=== PATIENT | male | born 1960 | race Caucasian/White ===

== ENCOUNTER → 2016-03-18 | Outpatient (CLI) | payer OTHER ==
--- NOTE | 2016-03-18 09:14 | MR ---
EXAMINATION TYPE: MR shoulder LT wo con DATE OF EXAM: 03/18/2016 6:55 AM COMPARISON: Radiograph 03/05/2016 HISTORY: 55-year-old male with pain and shoulder joint. TECHNIQUE: Multiplanar, multisequence imaging of the left shoulder is performed without contrast. FINDINGS: Unable to adequately visualize the long head biceps tendon. A thin strand may be present along the bi cipital groove, axial image 10. There is a tear of the superior most subscapularis tendon fibers with very mild fatty infiltration of the subscapularis muscle belly. Some of the middle and inferior third subscapularis tendon fibers ar e visualized but are heterogeneous suggesting tendinosis. Suspected partial thickness articular sided tearing of the middle and inferior thirds fibers, for example, axial image 11. There is moderate degenerative joint space narrowing with marginal spurring and capsular hypertrophy at the acromioclavicular joint. Mild encroachment onto the subacromial space. There is heterogeneous signal throughout the supraspinatus and infraspinatus tendons with suggestion of an anterior rim rent tear of the supraspinatus tendon measuring 6 mm long and 9 mm AP dimension. T his tear, however, delaminates medially and posteriorly within the substance of the entire supraspina tus tendon measure up to 1.9 cm long and 2.5 cm AP dimension. No discrete bursal sided communication or full-thickness, retracted tear is seen. There is intermediate, tendinotic signal within the infraspinatus tendon without discrete tear. Mild fluid within the subacromial/subdeltoid bursa. Minimal fatty streaks within both supraspinatus a nd infraspinatus muscle bellies. Evaluation of the glenohumeral joint shows overall preserved articular cartilage but with a degenerat kylie and blunted superior labrum. No paralabral cyst is seen. Physiologic joint effusion. No Hill-Sachs deformity or os acromiale. Some patchy red marrow is present and can be seen in the setting of anemia, smoking, obesity, or wetlands technician kavya disease. IMPRESSION: 1. Diffuse rotator cuff tendinosis. There appears to be a rim rent tear of the anterior supraspinatus tendon but with a larger intrasubstance tear delaminating posteriorly and medially measuring up to 1 .9 cm long and 2.5 cm AP involving nearly the entire supraspinatus tendon. No discrete bursal sided c ommunication or retracted full-thickness tear is seen. 2. Tear of the superior subscapularis tendon fibers and additional articular sided tearing of the rem aining middle and inferior thirds fibers. 3. Inadequate visualization of the long head biceps tendon which may be chronically torn. 4. Moderate AC joint osteoarthrosis. There is some inferior spurring which encroaches onto the subacr omial space. Underlying bursal effusion could be reactive or could represent a mild bursitis. 5. Degenerative and blunted superior labrum.
== END | disposition home or self-care (01) ==
LOC: RADMRIMAIN 06:13
PROVIDERS: ATTEND Family Medicine
DX: S46.812A Strain of other muscles, fascia and tendons at shoulder and upper arm level, left arm, initial encounter (principal); M75.122 Complete rotator cuff tear or rupture of left shoulder, not specified as traumatic; M19.012 Primary osteoarthritis, left shoulder

== ENCOUNTER 2016-04-01 07:32 | Emergency (ER) | payer OTHER ==
[2016-04-01] MEDS ORDERED: KETOROLAC 30 MG/ML 1 ML VIAL IVP STA (08:33)
[2016-04-01] MEDS ORDERED: ORPHENADRINE 30 MG/ML 2 ML VIAL IVP STA (08:34)
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
[2016-04-01 08:55] LABS: Basophils % (A) 1 %; CHCM 36.7; Eosinophils # (A) 0.3 k/uL (0-0.7); Eosinophils % (A) 6 %; HCT 40.8 % (39.0-53.0); HDW 3.33; HGB 14.3 gm/dL (13.0-17.5); Luc # (Auto) 0.14; Luc % (Auto) 3; Lymphocytes # (A) 1.8 k/uL (1.0-4.8); Lymphocytes % (A) 37 %; MCH 30.9 pg (25.0-35.0); MCHC 35.1 g/dL (31.0-37.0); MCV 87.9 fL (80.0-100.0); Mean Platelet Volume 8.9; Monocytes # (A) 0.4 k/uL (0-1.0); Monocytes % (A) 8 %; Neutrophils # (A) 2.1 k/uL (1.3-7.7); Neutrophils % (A) 45 %; RBC 4.64 m/uL (4.30-5.90); RDW 13.8 % (11.5-15.5); WBC 4.8 k/uL (3.8-10.6); WBC (Perox) 4.61
[2016-04-01 09:04] LABS: ALT 68 U/L (21-72); AST 32 U/L (17-59); Alkaline Phosphatase 60 U/L (38-126); Anion Gap 10 mmol/L; Blood Urea Nitrogen 11 mg/dL (9-20); Calcium 9.9 mg/dL (8.4-10.2); Carbon Dioxide 29 mmol/L (22-30); Chloride 104 mmol/L (98-107); Glucose 104 mg/dL (74-99); Magnesium 1.9 mg/dL (1.6-2.3); Non-African American GFR(MDRD) >60 (>60 ml/min/1.73 sqM); Potassium 4.4 mmol/L (3.5-5.1); Sodium 143 mmol/L (137-145); Total Bilirubin 0.6 mg/dL (0.2-1.3); Total Protein 7.4 g/dL (6.3-8.2)
[2016-04-01 09:24] LABS: Creatine Kinase 127 U/L (55-170)
--- NOTE | 2016-04-01 09:27 | XR ---
EXAMINATION TYPE: XR chest 2V DATE OF EXAM: 04/01/2016 9:20 AM COMPARISON: NONE HISTORY: Pain TECHNIQUE: Frontal and lateral views of the chest are obtained. FINDINGS: There is no focal air space opacity, pleural effusion, or pneumothorax seen. The cardiac silhouette size is within normal limits. The osseous structures are intact. IMPRESSION: No acute cardiopulmonary process.
--- NOTE | 2016-04-01 09:29 | XR ---
EXAMINATION TYPE: XR cervical spine comp DATE OF EXAM: 04/01/2016 9:20 AM CLINICAL HISTORY: pain COMPARISON: NONE TECHNIQUE: Frontal, lateral, oblique, swimmers, and open mouth view of the cervical spine are obtaine d. FINDINGS: The cervical spine is visualized in its entirety from C1 thru the top of T1 level. It is s atisfactory in alignment for dislocation. Well-corticated ossific density noted just caudal to C1 an teriorly is likely chronic in nature however consider CT to exclude acute process. The pre-vertebral soft tissue appears within normal limits. Disc spaces are well preserved. IMPRESSION: Well-corticated ossific density noted just caudal to C1 anteriorly is likely chronic in nature however consider CT to exclude acute process.
[2016-04-01 09:37] LABS: Creatine Kinase MB 1.1 ng/mL (0.0-2.4); Troponin I <0.012 ng/mL (0.000-0.034)
[2016-04-01 10:36] VITALS: BP 131/83; PULSE 63; RESP 14; TEMP 96.8
== END 2016-04-01 10:39 | disposition home or self-care (01) ==
LOC: EC 07:32
DX: M54.10 Radiculopathy, site unspecified (principal); M79.1 Myalgia; G89.29 Other chronic pain; M54.2 Cervicalgia; I20.9 Angina pectoris, unspecified; J44.9 Chronic obstructive pulmonary disease, unspecified; I10 Essential (primary) hypertension; E78.5 Hyperlipidemia, unspecified; F41.9 Anxiety disorder, unspecified; M19.90 Unspecified osteoarthritis, unspecified site; F41.0 Panic disorder [episodic paroxysmal anxiety]; Z79.899 Other long term (current) drug therapy; Z79.82 Long term (current) use of aspirin; Z79.51 Long term (current) use of inhaled steroids; Z87.891 Personal history of nicotine dependence; Z79.891 Long term (current) use of opiate analgesic
CPT/HCPCS: 36415; 93005; 80053; 82550; 82553; 83735; 84484; 85025; 71020; 72050; 96374; 96375; 99284; J2360; J1885

== ENCOUNTER 2016-04-11 03:35 | Emergency (ER) | payer OTHER ==
[2016-04-11 03:47] VITALS: BP 176/101; PULSE 91; RESP 18; TEMP 97
[2016-04-11] MEDS ORDERED: MAG HYDROX/AL HYDROX/SIMETH 30 ML, HYOSCYAMINE ELIXIR 10 ML, CIMETIDINE HCL 300 MG, LID... PO STA ×4 (04:02)
[2016-04-11] MEDS ORDERED: MORPHINE SULFATE 10 MG/ML SYRINGE IM STA (04:02)
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
== END 2016-04-11 04:21 | disposition home or self-care (01) ==
LOC: EC 03:35
DX: R07.89 Other chest pain (principal); I10 Essential (primary) hypertension; E78.5 Hyperlipidemia, unspecified; K21.9 Gastro-esophageal reflux disease without esophagitis; J44.9 Chronic obstructive pulmonary disease, unspecified; G47.30 Sleep apnea, unspecified; F41.0 Panic disorder [episodic paroxysmal anxiety]; M19.90 Unspecified osteoarthritis, unspecified site; Z99.89 Dependence on other enabling machines and devices; Z79.82 Long term (current) use of aspirin; Z79.899 Other long term (current) drug therapy; Z87.891 Personal history of nicotine dependence; Z79.891 Long term (current) use of opiate analgesic
CPT/HCPCS: 93005; 96372; 99285

== ENCOUNTER 2016-05-21 16:16 | Emergency (ER) | payer OTHER ==
[2016-05-21] MEDS ORDERED: NITROGLYCERIN SL TABS 0.4 MG TAB SUBLINGUAL STA ×2 (16:44)
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
[2016-05-21] MEDS: ASPIRIN 81 MG CHEW PO STA (16:59)
[2016-05-21] MEDS: NITROGLYCERIN SL TABS 0.4 MG TAB SUBLINGUAL STA (17:00)
[2016-05-21 17:03] VITALS: RESP 18
[2016-05-21 17:09] LABS: ALT 73 U/L (21-72); AST 46 U/L (17-59); Alkaline Phosphatase 60 U/L (38-126); Anion Gap 13 mmol/L; Blood Urea Nitrogen 19 mg/dL (9-20); Calcium 10.5 mg/dL (8.4-10.2); Carbon Dioxide 28 mmol/L (22-30); Chloride 101 mmol/L (98-107); Glucose 103 mg/dL (74-99); Non-African American GFR(MDRD) >60 (>60 ml/min/1.73 sqM); Potassium 4.6 mmol/L (3.5-5.1); Sodium 142 mmol/L (137-145); Total Bilirubin 0.6 mg/dL (0.2-1.3); Total Protein 8.2 g/dL (6.3-8.2)
[2016-05-21 17:10] LABS: Basophils # (A) 0.1 k/uL (0-0.2); Basophils % (A) 1 %; CHCM 36.6; Eosinophils # (A) 0.3 k/uL (0-0.7); Eosinophils % (A) 4 %; HCT 41.1 % (39.0-53.0); HDW 3.38; HGB 14.9 gm/dL (13.0-17.5); Luc # (Auto) 0.22; Luc % (Auto) 3; Lymphocytes % (A) 30 %; MCH 31.9 pg (25.0-35.0); MCHC 36.2 g/dL (31.0-37.0); MCV 88.2 fL (80.0-100.0); Mean Platelet Volume 7.6; Monocytes # (A) 0.4 k/uL (0-1.0); Monocytes % (A) 6 %; Neutrophils # (A) 3.7 k/uL (1.3-7.7); Neutrophils % (A) 55 %; RBC 4.67 m/uL (4.30-5.90); RDW 13.8 % (11.5-15.5); WBC 6.7 k/uL (3.8-10.6); WBC (Perox) 6.33
[2016-05-21 17:23] LABS: Prothrombin Time 10.4 sec (9.0-12.0)
[2016-05-21] MEDS: MAG HYDROX/AL HYDROX/SIMETH 30 ML, HYOSCYAMINE ELIXIR 10 ML, CIMETIDINE HCL 300 MG, LID... PO STA ×4 (17:24)
[2016-05-21 17:30] LABS: Creatine Kinase MB 1.7 ng/mL (0.0-2.4); Troponin I 0.014 ng/mL (0.000-0.034)
--- NOTE | 2016-05-21 17:52 | XR ---
EXAMINATION TYPE: XR chest 2V DATE OF EXAM: 05/21/2016 5:40 PM COMPARISON: 04/01/2016 HISTORY: Chest pain TECHNIQUE: Frontal and lateral views of the chest are obtained. FINDINGS: Heart and mediastinum are normal. Lungs are clear. Diaphragm is normal. Bony thorax appear s intact. There are chest leads. IMPRESSION: Normal chest. No change.
[2016-05-21 18:24] VITALS: BP 132/77; PULSE 81
[2016-05-21 18:34] VITALS: TEMP 98.4
== END 2016-05-21 18:34 | disposition home or self-care (01) ==
LOC: EC 16:16
DX: K22.4 Dyskinesia of esophagus (principal); R07.89 Other chest pain; J44.9 Chronic obstructive pulmonary disease, unspecified; E78.5 Hyperlipidemia, unspecified; I10 Essential (primary) hypertension; M19.90 Unspecified osteoarthritis, unspecified site; G47.30 Sleep apnea, unspecified; F31.9 Bipolar disorder, unspecified; F41.9 Anxiety disorder, unspecified; F41.0 Panic disorder [episodic paroxysmal anxiety]; Z87.891 Personal history of nicotine dependence; Z79.51 Long term (current) use of inhaled steroids; Z79.82 Long term (current) use of aspirin; Z79.899 Other long term (current) drug therapy
CPT/HCPCS: 36415; 71020; 80053; 82550; 82553; 83735; 84484; 85025; 85379; 85610; 85730; 93005; 99285

== ENCOUNTER → 2016-09-15 | Outpatient (CLI) | payer OTHER ==
--- NOTE | 2016-09-15 08:53 | FL ---
EXAMINATION TYPE: FL UGI air DATE OF EXAM: 09/15/2016 COMPARISON: NONE HISTORY: 55-year-old male with epigastric pain and reflux for 6 months. Patient reports some weight g ain and choking episodes. Total fluoroscopy time: 1.9 minutes. TECHNIQUE: A double contrast UGI study is performed. FINDINGS: The esophagus has a normal course, caliber, motility and mucosa. No hiatal hernia is identified. Gastroesophageal reflux could not be elicited with Valsalva or positional maneuvers. The stomach shows mild fold thickening along the gastric fundus. Otherwise, the stomach and duodenum are free of any persistent filling defect. IMPRESSION: 1. Some fold thickening along the gastric fundus can be seen with chronic gastritis. Clinically corre late. 2. No sizable hiatal hernia. While reflux could not be identified during the course of this exam, thi s does not exclude its possibility. 3. Consider the utility of a modified barium swallow under the supervision of speech pathology given the patient's reported choking episodes.
== END | disposition home or self-care (01) ==
LOC: RADFLWHC 07:51
PROVIDERS: ATTEND Family Medicine
DX: K31.89 Other diseases of stomach and duodenum (principal); R10.13 Epigastric pain
CPT/HCPCS: 74246

== ENCOUNTER → 2017-04-07 | Day surgery (SDC) | payer OTHER ==
[2017-03-30 15:14] VITALS: BMI 45.6
[~2017-04-07] MED LIST: DEXAMETHASONE SOD PHOSPHATE 10 MG/ML 1 ML VIAL IV ONE; HEPARIN SODIUM,PORCINE 5,000 UNIT/ML 1 ML VIAL SQ ONE; HYDROmorphone 0.5 MG/0.5 ML SYRINGE IVP PRN; LACTATED RINGERS 1,000 ML IV SCH; LIDOCAINE 1% 20 ML VIAL (10MG/ML) FOR IV START INTRADERMA PRN; LIDOCAINE 1% INJ 10MG/ML (20 ML MDV) SQ ONE; ONDANSETRON 4 MG/2 ML VIAL IVP ONE; Pre Op ABX Message 1 EACH MISC MISCELLANE ONE; SCOPOLAMINE 1.5MG/72HR PATCH TRANSDERM ONE
[2017-04-07 09:23] VITALS: TEMP 98.7
--- NOTE | 2017-04-07 10:41 | P.OP ---
Date of Procedure: 04/07/17 Preoperative Diagnosis: Soft tissue mass further and left chest Postoperative Diagnosis: Same Procedure(s) Performed: Excision soft tissue mass right arm and left chest Anesthesia: local Surgeon: Marcela Root Estimated Blood Loss (ml): 3 IV fluids (ml): 150 Pathology: other (Soft tissue masses 2) Condition: stable Disposition: PACU Indications for Procedure: Soft tissue masses increasing in size and painful Operative Findings: Soft tissue masses 2 right arm and left chest Description of Procedure: Patient was taken to the operating room and following the right arm and left chest pain prepped in a sterile fashion. Percent lidocaine was used to anesthetize the area of concern in the right arm. An incision was made and carried through the skin and subcutaneous tissue to the lesion of concern in the right arm. This was excised. It was consistent with a lipoma. It was approximately 2 x 1.5 cm in size. Following this the deep tissues were closed using a Vicryl suture followed by closure of the skin with a 4-0 Monocryl. The area of the chest was then approached. 1% lidocaine was used to anesthetize the area of concern. Incision was made and carried through skin and subcutaneous tissues and through area of the subcutaneous tissue was lipomatous lesion was identified and removed. This is approximately 1.8 x 1.2 cm in size. After assured that hemostasis was attained the deep tissues were closed using a Vicryl suture. The skin was closed using 4-0 Monocryl. Patient tolerated procedure in stable condition. All instrument and sponge counts were correct at the end of the case.
--- NOTE | 2017-04-07 10:43 | P.DS ---
Providers Attending physician: Marcela Root Primary care physician: Papo Castellanos Plan - Discharge Summary New Discharge Prescriptions: No Action Nitroglycerin Sl Tabs [Nitrostat] 0.4 mg SUBLINGUAL Q5M PRN PRN Reason: Chest Pain Hydrocodone/Acetaminophen [[place] 10-325] 1 tab PO Q6H PRN PRN Reason: Pain Metoprolol Tartrate [Lopressor] 50 mg PO TID Albuterol Inhaler [Ventolin Hfa Inhaler] 2 puff INHALATION Q4H PRN PRN Reason: Shortness Of Breath ALPRAZolam [Xanax] 1 mg PO TID PRN PRN Reason: Anxiety Losartan [Cozaar] 50 mg PO HS Gemfibrozil 600 mg PO BID Ipratropium Nebulized [Atrovent Nebulized] 0.5 mg INHALATION QID PRN PRN Reason: sob Naproxen 500 mg PO Q12H PRN PRN Reason: Pain Baclofen [Lioresal] 20 mg PO HS Budesonide/Formoterol Fumarate [Symbicort 160-4.5 Mcg Inhaler] 2 puff INHALATION BID Albuterol Nebulized [Ventolin Nebulized] 2.5 mg INHALATION QID PRN PRN Reason: sob Aspirin EC [Ecotrin Low Dose] 81 mg PO DAILY Multivit-Min/FA/Lycopen/Lutein [Centrum Silver Tablet] 1 tab PO DAILY Pantoprazole [Protonix] 40 mg PO DAILY #14 tablet. Omega3/Dha/Epa/Fish Oil/Vit D3 [Fish Oil-Vit D3 Softgel] 1 each PO DAILY Magnesium Oxide [Mag-Ox] 250 mg PO DAILY Ubidecarenone [Co Q-10] 100 mg PO DAILY Discharge Medication List Hydrocodone/Acetaminophen [[place] 10-325] 1 tab PO Q6H PRN 03/02/14 [History] Metoprolol Tartrate [Lopressor] 50 mg PO TID 03/02/14 [History] Nitroglycerin Sl Tabs [Nitrostat] 0.4 mg SUBLINGUAL Q5M PRN 03/02/14 [History] ALPRAZolam [Xanax] 1 mg PO TID PRN 05/25/14 [History] Albuterol Inhaler [Ventolin Hfa Inhaler] 2 puff INHALATION Q4H PRN 05/25/14 [ History] Losartan [Cozaar] 50 mg PO HS 02/01/15 [History] Gemfibrozil 600 mg PO BID 02/04/15 [History] Ipratropium Nebulized [Atrovent Nebulized] 0.5 mg INHALATION QID PRN 02/06/15 [ History] Baclofen [Lioresal] 20 mg PO HS 11/07/15 [History] Naproxen 500 mg PO Q12H PRN 11/07/15 [History] Budesonide/Formoterol Fumarate [Symbicort 160-4.5 Mcg Inhaler] 2 puff INHALATION BID 01/31/16 [History] Albuterol Nebulized [Ventolin Nebulized] 2.5 mg INHALATION QID PRN 02/29/16 [ History] Aspirin EC [Ecotrin Low Dose] 81 mg PO DAILY 03/03/16 [History] Multivit-Min/FA/Lycopen/Lutein [Centrum Silver Tablet] 1 tab PO DAILY 04/01/16 [ History] Pantoprazole [Protonix] 40 mg PO DAILY #14 tablet. 05/21/16 [Rx] Magnesium Oxide [Mag-Ox] 250 mg PO DAILY 03/30/17 [History] Omega3/Dha/Epa/Fish Oil/Vit D3 [Fish Oil-Vit D3 Softgel] 1 each PO DAILY [History] Ubidecarenone [Co Q-10] 100 mg PO DAILY 03/30/17 [History] Follow up Appointment(s)/Referral(s): Marcela Root MD [STAFF PHYSICIAN] - 1 Week Activity/Diet/Wound Care/Special Instructions: Patient may shower after 48 hours Discharge Disposition: HOME SELF-CARE
[2017-04-07 10:47] VITALS: BP 115/68; PULSE 69; RESP 16
== END | disposition home or self-care (01) ==
LOC: OR 08:30
PROVIDERS: ATTEND Surgery
DX: D17.1 Benign lipomatous neoplasm of skin and subcutaneous tissue of trunk (principal); D17.21 Benign lipomatous neoplasm of skin and subcutaneous tissue of right arm; I10 Essential (primary) hypertension; K21.9 Gastro-esophageal reflux disease without esophagitis; F41.9 Anxiety disorder, unspecified; Z87.891 Personal history of nicotine dependence; Z79.82 Long term (current) use of aspirin; Z79.891 Long term (current) use of opiate analgesic; Z79.51 Long term (current) use of inhaled steroids; Z79.899 Other long term (current) drug therapy
CPT/HCPCS: 88305; 21555; 25075; J1644; J2001

== ENCOUNTER 2017-05-23 18:12 | Emergency (ER) | payer OTHER ==
[2017-05-23 18:22] VITALS: TEMP 99.8
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
[2017-05-23] MEDS ORDERED: SODIUM CHLORIDE 0.9% 1,000 ML IV SCH (19:30)
--- NOTE | 2017-05-23 20:13 | XR ---
EXAMINATION TYPE: XR chest 2V DATE OF EXAM: 05/23/2017 COMPARISON: Chest x-ray May 21, 2016. HISTORY: Palpitations and dysrhythmia. TECHNIQUE: Frontal and lateral views of the chest are obtained. FINDINGS: There is no focal air space opacity, pleural effusion, or pneumothorax seen. The cardiac silhouette size is within normal limits. The osseous structures are intact. IMPRESSION: No acute cardiopulmonary process. No significant change from prior.
[2017-05-23 20:28] VITALS: RESP 18
[2017-05-23 21:20] LABS: Creatine Kinase 237 U/L (55-170)
[2017-05-23 21:31] LABS: Creatine Kinase MB 1.3 ng/mL (0.0-2.4); Troponin I <0.012 ng/mL (0.000-0.034)
[2017-05-23 22:18] VITALS: BP 134/66; PULSE 84
== END 2017-05-23 22:17 | disposition home or self-care (01) ==
LOC: EC 18:12
DX: I20.8 Other forms of angina pectoris (principal); F41.9 Anxiety disorder, unspecified; J44.9 Chronic obstructive pulmonary disease, unspecified; I10 Essential (primary) hypertension; G47.30 Sleep apnea, unspecified; Z99.89 Dependence on other enabling machines and devices; E78.1 Pure hyperglyceridemia; Z95.5 Presence of coronary angioplasty implant and graft; Z87.891 Personal history of nicotine dependence; Z79.51 Long term (current) use of inhaled steroids; Z79.82 Long term (current) use of aspirin; Z79.899 Other long term (current) drug therapy
CPT/HCPCS: 36415; 71046; 82550; 82553; 84484; 93005; 99285

== ENCOUNTER 2017-07-11 22:06 | Emergency (ER) | payer OTHER ==
[2017-07-11 22:17] VITALS: TEMP 98.8
[2017-07-11] MEDS ORDERED: SODIUM CHLORIDE 0.9% 1,000 ML IV STA (22:46)
[2017-07-11] MEDS ORDERED: LORazepam 1 MG TAB PO STA (22:47)
[2017-07-11 22:55] VITALS: RESP 16
[2017-07-11 23:06] LABS: Basophils # (A) 0.1 k/uL (0-0.2); Basophils % (A) 1 %; Eosinophils # (A) 0.3 k/uL (0-0.7); Eosinophils % (A) 5 %; HCT 41.1 % (39.0-53.0); HGB 14.4 gm/dL (13.0-17.5); Lymphocytes # (A) 2.8 k/uL (1.0-4.8); Lymphocytes % (A) 39 %; MCH 30.3 pg (25.0-35.0); MCHC 35.1 g/dL (31.0-37.0); MCV 86.2 fL (80.0-100.0); Mean Platelet Volume 7.4; Monocytes # (A) 0.5 k/uL (0-1.0); Monocytes % (A) 8 %; Neutrophils # (A) 3.2 k/uL (1.3-7.7); Neutrophils % (A) 45 %; Platelet Count 252 k/uL (150-450); RBC 4.77 m/uL (4.30-5.90); RDW 13.6 % (11.5-15.5); WBC 7.1 k/uL (3.8-10.6)
[2017-07-11 23:13] LABS: INR 1.1 (<1.2)
[2017-07-11 23:14] LABS: Partial Thromboplastin Time 24.2 sec (22.0-30.0); Prothrombin Time 10.3 sec (9.0-12.0)
[2017-07-11 23:17] LABS: ALT 88 U/L (21-72); AST 57 U/L (17-59); Alkaline Phosphatase 56 U/L (38-126); Anion Gap 14 mmol/L; Blood Urea Nitrogen 16 mg/dL (9-20); Calcium 10.5 mg/dL (8.4-10.2); Carbon Dioxide 25 mmol/L (22-30); Chloride 105 mmol/L (98-107); Glucose 121 mg/dL (74-99); Potassium 4.4 mmol/L (3.5-5.1); Sodium 144 mmol/L (137-145); Total Bilirubin 0.6 mg/dL (0.2-1.3); Total Protein 7.7 g/dL (6.3-8.2)
--- NOTE | 2017-07-11 23:20 | XR ---
EXAMINATION TYPE: XR chest 2V DATE OF EXAM: 07/11/2017 COMPARISON: 05/23/2017 HISTORY: Dysrhythmia TECHNIQUE: Frontal and lateral views of the chest are obtained. FINDINGS: There is no heart failure nor confluent pneumonic infiltrate. Costophrenic angles are gamal r. Heart size is normal. There are chest leads. Bony thorax is intact. IMPRESSION: No active cardiopulmonary disease. No change.
[2017-07-11 23:25] LABS: Creatine Kinase 600 U/L (55-170)
[2017-07-11 23:38] LABS: Troponin I <0.012 ng/mL (0.000-0.034)
[2017-07-11 23:51] VITALS: BP 132/65; PULSE 75
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
== END 2017-07-12 01:17 | disposition left against medical advice (07) ==
LOC: EC 22:06
DX: R00.2 Palpitations (principal); I10 Essential (primary) hypertension; J44.9 Chronic obstructive pulmonary disease, unspecified; E78.1 Pure hyperglyceridemia; G47.30 Sleep apnea, unspecified; Z99.89 Dependence on other enabling machines and devices; Z95.818 Presence of other cardiac implants and grafts; Z87.891 Personal history of nicotine dependence; Z79.899 Other long term (current) drug therapy; Z79.51 Long term (current) use of inhaled steroids; Z79.82 Long term (current) use of aspirin; Z82.49 Family history of ischemic heart disease and other diseases of the circulatory system
CPT/HCPCS: 36415; 71046; 80053; 82550; 82553; 83735; 84443; 84484; 85025; 85610; 85730; 93005; 96360; 96361; 99285

== ENCOUNTER 2017-07-15 07:55 | Emergency (ER) | payer OTHER ==
[2017-07-15] MEDS ORDERED: ASPIRIN 81 MG PO STA (08:05)
[2017-07-15] MEDS ORDERED: SODIUM CHLORIDE 0.9% 500 ML IV STA (08:05)
[2017-07-15] MEDS ORDERED: LORazepam 2 MG/ML INJ IV STA (08:23)
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
[2017-07-15] MEDS ORDERED: LORazepam 1 MG TAB PO STA (08:33)
[2017-07-15 08:39] VITALS: RESP 18
[2017-07-15 08:54] LABS: Basophils % (A) 1 %; Eosinophils # (A) 0.2 k/uL (0-0.7); Eosinophils % (A) 4 %; HCT 42.6 % (39.0-53.0); Lymphocytes # (A) 1.8 k/uL (1.0-4.8); Lymphocytes % (A) 33 %; MCH 29.8 pg (25.0-35.0); MCHC 35.2 g/dL (31.0-37.0); MCV 84.7 fL (80.0-100.0); Mean Platelet Volume 8.4; Monocytes # (A) 0.4 k/uL (0-1.0); Monocytes % (A) 7 %; Neutrophils # (A) 2.8 k/uL (1.3-7.7); Neutrophils % (A) 52 %; Platelet Count 221 k/uL (150-450); RBC 5.02 m/uL (4.30-5.90); RDW 13.5 % (11.5-15.5); WBC 5.3 k/uL (3.8-10.6)
--- NOTE | 2017-07-15 08:55 | XR ---
EXAMINATION TYPE: XR chest 2V DATE OF EXAM: 07/15/2017 COMPARISON: 07/11/2017 HISTORY: 56-year-old male dysrhythmia TECHNIQUE: PA and lateral views FINDINGS: The cardiomediastinal silhouette, aorta, and pulmonary vasculature are within normal limits. Mild int erstitial prominence is unchanged. Lungs and pleural spaces are clear. IMPRESSION: Chronic changes without acute cardiopulmonary process.
[2017-07-15 09:03] LABS: ALT 77 U/L (21-72); AST 75 U/L (17-59); Albumin 5.2 g/dL (3.5-5.0); Alkaline Phosphatase 56 U/L (38-126); Anion Gap 17 mmol/L; Blood Urea Nitrogen 16 mg/dL (9-20); Carbon Dioxide 22 mmol/L (22-30); Chloride 105 mmol/L (98-107); Glucose 108 mg/dL (74-99); Sodium 144 mmol/L (137-145); Total Bilirubin 1.2 mg/dL (0.2-1.3); Total Protein 8.1 g/dL (6.3-8.2)
[2017-07-15 09:06] LABS: INR 1.1 (<1.2); Prothrombin Time 10.8 sec (9.0-12.0)
[2017-07-15 09:08] LABS: Partial Thromboplastin Time 19.4 sec (22.0-30.0)
[2017-07-15 09:10] LABS: Potassium 5.1 mmol/L (3.5-5.1)
[2017-07-15 09:15] LABS: Creatine Kinase 383 U/L (55-170)
[2017-07-15 09:28] LABS: Creatine Kinase MB 1.5 ng/mL (0.0-2.4); Troponin I <0.012 ng/mL (0.000-0.034)
[2017-07-15 09:41] VITALS: PULSE 87
[2017-07-15 10:29] VITALS: BP 124/71; TEMP 98.3
== END 2017-07-15 10:24 | disposition home or self-care (01) ==
LOC: EC 07:55
DX: R00.2 Palpitations (principal); F41.0 Panic disorder [episodic paroxysmal anxiety]; J44.9 Chronic obstructive pulmonary disease, unspecified; E78.5 Hyperlipidemia, unspecified; I10 Essential (primary) hypertension; M19.90 Unspecified osteoarthritis, unspecified site; E78.1 Pure hyperglyceridemia; G47.30 Sleep apnea, unspecified; Z99.89 Dependence on other enabling machines and devices; Z95.818 Presence of other cardiac implants and grafts; Z87.891 Personal history of nicotine dependence; Z79.899 Other long term (current) drug therapy; Z79.51 Long term (current) use of inhaled steroids; Z79.82 Long term (current) use of aspirin; Z79.1 Long term (current) use of non-steroidal anti-inflammatories (NSAID); Z53.29 Procedure and treatment not carried out because of patient's decision for other reasons
CPT/HCPCS: 36415; 71046; 80053; 82550; 82553; 83735; 84484; 85025; 85610; 85730; 99285

== ENCOUNTER → 2017-07-25 | Outpatient (CLI) | payer OTHER ==
[2017-07-25 08:46] LABS: Basophils % (A) 1 %; Eosinophils # (A) 0.3 k/uL (0-0.7); Eosinophils % (A) 5 %; HCT 40.6 % (39.0-53.0); HGB 13.9 gm/dL (13.0-17.5); Lymphocytes # (A) 2.2 k/uL (1.0-4.8); Lymphocytes % (A) 45 %; MCH 29.8 pg (25.0-35.0); MCHC 34.3 g/dL (31.0-37.0); MCV 86.9 fL (80.0-100.0); Mean Platelet Volume 8.4; Monocytes # (A) 0.4 k/uL (0-1.0); Monocytes % (A) 8 %; Neutrophils # (A) 1.9 k/uL (1.3-7.7); Neutrophils % (A) 38 %; Platelet Count 225 k/uL (150-450); RBC 4.67 m/uL (4.30-5.90); RDW 13.6 % (11.5-15.5); WBC 4.9 k/uL (3.8-10.6)
[2017-07-25 09:02] LABS: ALT 75 U/L (21-72); AST 39 U/L (17-59); Albumin 4.5 g/dL (3.5-5.0); Alkaline Phosphatase 51 U/L (38-126); Anion Gap 13 mmol/L; Blood Urea Nitrogen 17 mg/dL (9-20); Calcium 9.6 mg/dL (8.4-10.2); Carbon Dioxide 28 mmol/L (22-30); Chloride 104 mmol/L (98-107); Cholesterol 117 mg/dL (<200); Glucose 113 mg/dL (74-99); HDL Cholesterol 26 mg/dL (40-60); LDL Cholesterol,Calculated 64 mg/dL (0-99); Potassium 4.5 mmol/L (3.5-5.1); Sodium 145 mmol/L (137-145); Total Bilirubin 0.5 mg/dL (0.2-1.3); Total Protein 6.9 g/dL (6.3-8.2); Triglycerides 135 mg/dL (<150)
[2017-07-25 09:17] LABS: T4, Free (Free Thyroxine) 0.95 ng/dL (0.78-2.19)
[2017-07-25 18:19] LABS: Hemoglobin A1C 5.3 % (4.0-6.0)
== END | disposition home or self-care (01) ==
LOC: LABWHC1 08:20
PROVIDERS: ATTEND Family Medicine
DX: E04.9 Nontoxic goiter, unspecified (principal); I10 Essential (primary) hypertension; R73.9 Hyperglycemia, unspecified
CPT/HCPCS: 36415; 80053; 80061; 83036; 84439; 84443; 85025

== ENCOUNTER 2017-08-24 15:34 | Emergency (ER) | payer OTHER ==
[2017-08-24 15:46] VITALS: TEMP 98
[2017-08-24] MEDS ORDERED: SODIUM CHLORIDE 0.9% 500 ML IV STA (15:50)
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
[2017-08-24 16:17] LABS: Basophils % (A) 1 %; Eosinophils # (A) 0.3 k/uL (0-0.7); Eosinophils % (A) 7 %; HCT 42.9 % (39.0-53.0); HGB 15.2 gm/dL (13.0-17.5); Lymphocytes # (A) 1.8 k/uL (1.0-4.8); Lymphocytes % (A) 35 %; MCH 31.1 pg (25.0-35.0); MCHC 35.5 g/dL (31.0-37.0); MCV 87.8 fL (80.0-100.0); Mean Platelet Volume 6.9; Monocytes # (A) 0.4 k/uL (0-1.0); Monocytes % (A) 7 %; Neutrophils # (A) 2.5 k/uL (1.3-7.7); Neutrophils % (A) 48 %; Platelet Count 238 k/uL (150-450); RBC 4.89 m/uL (4.30-5.90); RDW 13.8 % (11.5-15.5); WBC 5.1 k/uL (3.8-10.6)
--- NOTE | 2017-08-24 16:21 | XR ---
EXAMINATION TYPE: XR chest 2V DATE OF EXAM: 08/24/2017 COMPARISON: Chest x-ray July 15, 2017 HISTORY: Heart palpitations with dysrhythmia. TECHNIQUE: Frontal and lateral views of the chest are obtained. FINDINGS: Somewhat low lung volumes are redemonstrated. There is no focal air space opacity, pleural effusion, or pneumothorax seen. The cardiac silhouette size is within normal limits. The osseous structures are intact. IMPRESSION: No acute cardiopulmonary process. No significant change from prior.
[2017-08-24 16:23] LABS: INR 1.1 (<1.2); Prothrombin Time 10.4 sec (9.0-12.0)
[2017-08-24 16:25] LABS: ALT 91 U/L (21-72); AST 53 U/L (17-59); Albumin 4.9 g/dL (3.5-5.0); Alkaline Phosphatase 58 U/L (38-126); Anion Gap 15 mmol/L; Blood Urea Nitrogen 13 mg/dL (9-20); Calcium 10.1 mg/dL (8.4-10.2); Carbon Dioxide 27 mmol/L (22-30); Chloride 103 mmol/L (98-107); Glucose 104 mg/dL (74-99); Magnesium 2.1 mg/dL (1.6-2.3); Potassium 4.5 mmol/L (3.5-5.1); Sodium 145 mmol/L (137-145); Total Bilirubin 0.6 mg/dL (0.2-1.3); Total Protein 7.6 g/dL (6.3-8.2)
[2017-08-24 16:30] LABS: Creatine Kinase 251 U/L (55-170)
[2017-08-24 16:42] LABS: Creatine Kinase MB 1.6 ng/mL (0.0-2.4); Troponin I <0.012 ng/mL (0.000-0.034)
[2017-08-24 17:37] VITALS: BP 127/69; PULSE 74; RESP 18
== END 2017-08-24 17:37 | disposition home or self-care (01) ==
LOC: EC 15:34
DX: R00.8 Other abnormalities of heart beat (principal); R00.2 Palpitations; I48.91 Unspecified atrial fibrillation; I20.9 Angina pectoris, unspecified; J44.9 Chronic obstructive pulmonary disease, unspecified; E78.5 Hyperlipidemia, unspecified; F41.9 Anxiety disorder, unspecified; I10 Essential (primary) hypertension; M19.90 Unspecified osteoarthritis, unspecified site; Z87.891 Personal history of nicotine dependence; Z98.890 Other specified postprocedural states; Z79.82 Long term (current) use of aspirin; Z79.891 Long term (current) use of opiate analgesic; Z79.899 Other long term (current) drug therapy
CPT/HCPCS: 36415; 71046; 80053; 82550; 82553; 83735; 84443; 84484; 85025; 85610; 85730; 93005; 99285

== ENCOUNTER 2017-08-26 09:09 | Emergency (ER) | payer OTHER ==
[2017-08-26 09:27] VITALS: RESP 18
[2017-08-26] MEDS ORDERED: ASPIRIN 81 MG PO STA (09:49)
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
[2017-08-26 10:14] LABS: Basophils % (A) 1 %; Eosinophils # (A) 0.3 k/uL (0-0.7); Eosinophils % (A) 6 %; HCT 40.4 % (39.0-53.0); HGB 14.5 gm/dL (13.0-17.5); Lymphocytes # (A) 1.6 k/uL (1.0-4.8); Lymphocytes % (A) 35 %; MCH 31.3 pg (25.0-35.0); MCHC 35.8 g/dL (31.0-37.0); MCV 87.4 fL (80.0-100.0); Mean Platelet Volume 6.7; Monocytes # (A) 0.3 k/uL (0-1.0); Monocytes % (A) 7 %; Neutrophils # (A) 2.3 k/uL (1.3-7.7); Neutrophils % (A) 49 %; Platelet Count 232 k/uL (150-450); RBC 4.62 m/uL (4.30-5.90); RDW 13.6 % (11.5-15.5); WBC 4.6 k/uL (3.8-10.6)
[2017-08-26 10:28] LABS: ALT 80 U/L (21-72); AST 47 U/L (17-59); Albumin 4.8 g/dL (3.5-5.0); Alkaline Phosphatase 48 U/L (38-126); Anion Gap 15 mmol/L; Blood Urea Nitrogen 17 mg/dL (9-20); Calcium 9.7 mg/dL (8.4-10.2); Carbon Dioxide 25 mmol/L (22-30); Chloride 103 mmol/L (98-107); Glucose 124 mg/dL (74-99); Magnesium 2.1 mg/dL (1.6-2.3); Potassium 4.5 mmol/L (3.5-5.1); Sodium 143 mmol/L (137-145); Total Bilirubin 0.6 mg/dL (0.2-1.3); Total Protein 7.1 g/dL (6.3-8.2)
--- NOTE | 2017-08-26 10:40 | XR ---
EXAMINATION TYPE: XR chest 2V DATE OF EXAM: 08/26/2017 COMPARISON: 08/24/2017 HISTORY: Dysrhythmia. TECHNIQUE: Frontal and lateral views of the chest are obtained. FINDINGS: There is no focal air space opacity, pleural effusion, or pneumothorax seen. The cardiac silhouette size is within normal limits. The osseous structures are intact. IMPRESSION: No acute cardiopulmonary process.
--- NOTE | 2017-08-26 12:01 | ECHOF ---
Referral Reason:palpitations MEASUREMENTS -------- HEIGHT: 172.7 cm WEIGHT: 136.1 kg BP: 162/95 RVIDd: 3.5 cm (< 3.3) IVSd: 1.6 cm (0.6 - 1.1) LVIDd: 5.3 cm (3.9 - 5.3) LVPWd: 1.4 cm (0.6 - 1.1) IVSs: 2.0 cm LVIDs: 3.3 cm LVPWs: 1.7 cm LA Diam: 3.9 cm (2.7 - 3.8) LAESV Index (A-L): 37.31 ml/m Ao Diam: 3.7 cm (2.0 - 3.7) AV Cusp: 2.3 cm (1.5 - 2.6) MV EXCURSION: 20.304 mm (> 18.000) MV EF SLOPE: 79 mm/s (70 - 150) EPSS: 0.9 cm MV E Real: 1.00 m/s MV DecT: 176 ms MV A Real: 0.80 m/s MV E/A Ratio: 1.25 FINDINGS -------- Sinus rhythm. This was a technically difficult study with suboptimal views. The left ventricular size is normal. There is moderate concentric left ventricular hypertrophy. O verall left ventricular systolic function is normal with, an EF between 55 - 60 %. The right ventricle is mildly enlarged. LA is moderately dilated 34-39 ml/m2 The right atrium is normal in size. 3 ml of Lumason was utilized for enhancement of images. The aortic valve is trileaflet and appears structurally normal. The mitral valve is normal. The tricuspid valve appears structurally normal. Trace/mild (physiologic) pulmonic regurgitation. The aortic root size is normal. IVC Not well visulized. There is no pericardial effusion. CONCLUSIONS -------- 1. Sinus rhythm. 2. This was a technically difficult study with suboptimal views. 3. The left ventricular size is normal. 4. There is moderate concentric left ventricular hypertrophy. 5. Overall left ventricular systolic function is normal with, an EF between 55 - 60 %. 6. The right ventricle is mildly enlarged. 7. LA is moderately dilated 34-39 ml/m2 8. The right atrium is normal in size. 9. 3 ml of Lumason was utilized for enhancement of images. 10. The aortic valve is trileaflet and appears structurally normal. 11. The mitral valve is normal. 12. The tricuspid valve appears structurally normal. 13. Trace/mild (physiologic) pulmonic regurgitation. 14. The aortic root size is normal. 15. IVC Not well visulized. 16. There is no pericardial effusion. ASSISTANT COMMISSIONER: Louise Rogel RDCS
[2017-08-26 12:39] VITALS: BP 145/70; PULSE 62; TEMP 98.2
== END 2017-08-26 12:38 | disposition home or self-care (01) ==
LOC: EC 09:09
DX: R00.2 Palpitations (principal); I48.91 Unspecified atrial fibrillation; J44.9 Chronic obstructive pulmonary disease, unspecified; K21.9 Gastro-esophageal reflux disease without esophagitis; E78.5 Hyperlipidemia, unspecified; I10 Essential (primary) hypertension; M19.90 Unspecified osteoarthritis, unspecified site; E07.9 Disorder of thyroid, unspecified; F31.9 Bipolar disorder, unspecified; F41.0 Panic disorder [episodic paroxysmal anxiety]; F90.9 Attention-deficit hyperactivity disorder, unspecified type; Z87.891 Personal history of nicotine dependence; Z79.82 Long term (current) use of aspirin; Z79.899 Other long term (current) drug therapy; Z95.818 Presence of other cardiac implants and grafts
CPT/HCPCS: 36415; 93005; 80053; 83735; 84443; 84484; 85025; 71046; 99285; C8929; Q9950; 93306

== ENCOUNTER 2017-09-23 07:12 | Day surgery (SDC) | payer OTHER ==
[2017-09-18 15:54] VITALS: BMI 45.6
[~2017-09-23 07:12] MED LIST changes: -DEXAMETHASONE SOD PHOSPHATE 10 MG/ML 1 ML VIAL IV ONE; -HEPARIN SODIUM,PORCINE 5,000 UNIT/ML 1 ML VIAL SQ ONE; -HYDROmorphone 0.5 MG/0.5 ML SYRINGE IVP PRN; -LIDOCAINE 1% 20 ML VIAL (10MG/ML) FOR IV START INTRADERMA PRN; -LIDOCAINE 1% INJ 10MG/ML (20 ML MDV) SQ ONE; -ONDANSETRON 4 MG/2 ML VIAL IVP ONE; -Pre Op ABX Message 1 EACH MISC MISCELLANE ONE; -SCOPOLAMINE 1.5MG/72HR PATCH TRANSDERM ONE
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
[2017-09-23] MEDS ORDERED: LIDOCAINE 1% 20 ML VIAL (10MG/ML) FOR IV START INTRADERMA ONE (07:50)
[2017-09-23 07:59] VITALS: RESP 16; TEMP 98
[2017-09-23] MEDS ORDERED: PROPOFOL 10 MG/ML 20 ML VIAL IV ONE (08:25)
[2017-09-23] MEDS ORDERED: LIDOCAINE 1% INJ 10MG/ML (20 ML MDV) ONE (08:25)
--- NOTE | 2017-09-23 08:56 | P.PCN ---
Date of Procedure: 09/23/17 Description of Procedure: PREOPERATIVE DIAGNOSIS: Colonoscopy screening Family history of colon cancer, father POSTOPERATIVE DIAGNOSIS: Colonoscopy screening Family history of colon cancer, father External hemorrhoids, grade 2 Tubular adenoma, sigmoid colon OPERATION: Colonoscopy to the ileocecal valve Colonoscopy with hot snare polypectomy SURGEON: Nicol Yo MD. ANESTHESIA: MAC. INDICATIONS: The patient is a 56-year-old male who presents for colonoscopy screening. Benefits and risks were described and informed consent was obtained. DESCRIPTION OF PROCEDURE: The patient had undergone Gatorade, MiraLAX and Dulcolax prep. He had been brought into the operating room and laid in the left lateral decubitus position. After adequate intravenous sedation, the rectum was examined with 2% lidocaine jelly. External hemorrhoids were encountered. The prostate was smooth and without abnormalities. The rectal tone was within normal limits. No lesions were palpated in the rectal vault. An Olympus colonoscope was advanced until the ileocecal valve was clearly viewed. The prep was good with visualization of the mucosal folds. No scattered diverticulosis was encountered. Colonic polyp was found and snare polypectomy. No evidence of focal colitis was found. Retroflexion of the scope demonstrated grade 1 internal hemorrhoids without active bleeding or inflammation. The colon was desufflated. The patient had tolerated the procedure well. Withdrawal time was over 6 minutes. FINDINGS: Internal hemorrhoids, grade 1 External hemorrhoids, grade 2. No arteriovenous malformations. No sigmoid diverticulosis Removal of 1 polyp: - Snare polypectomy 30 cm from the anal verge, 5 mm tubulovillous adenoma polyp , sigmoid colon No focal colitis. RECOMMENDATIONS: Recommend repeat colonoscopy 3 years, 2020. Plan - Discharge Summary New Discharge Prescriptions: No Action Nitroglycerin Sl Tabs [Nitrostat] 0.4 mg SUBLINGUAL Q5M PRN PRN Reason: Chest Pain Hydrocodone/Acetaminophen [[place] 10-325] 1 tab PO QID Metoprolol Tartrate [Lopressor] 50 mg PO TID Albuterol Inhaler [Ventolin Hfa Inhaler] 2 puff INHALATION RT-Q4H PRN PRN Reason: Shortness Of Breath Losartan [Cozaar] 50 mg PO HS Gemfibrozil 600 mg PO BID Naproxen 500 mg PO Q12H PRN PRN Reason: Pain Baclofen [Lioresal] 20 mg PO HS Budesonide/Formoterol Fumarate [Symbicort 160-4.5 Mcg Inhaler] 2 puff INHALATION RT-BID PRN PRN Reason: Shortness Of Breath Aspirin EC [Ecotrin Low Dose] 81 mg PO DAILY Multivit-Min/FA/Lycopen/Lutein [Centrum Silver Tablet] 1 tab PO DAILY Pantoprazole [Protonix] 40 mg PO DAILY #14 tablet. Omega3/Dha/Epa/Fish Oil/Vit D3 [Fish Oil-Vit D3 Softgel] 1 cap PO DAILY Ubidecarenone [Co Q-10] 100 mg PO DAILY Calcium 1200mg Plus D 1 tab PO DAILY Magnesium Oxide [Mag-Ox] 400 mg PO DAILY Ipratropium-Albuterol Nebulize [Duoneb 0.5 mg-3 mg/3 ml Soln] 3 ml INHALATION RT-DAILY clonazePAM [KlonoPIN] 1 mg PO TID Discharge Medication List Hydrocodone/Acetaminophen [[place] 10-325] 1 tab PO QID 03/02/14 [History] Metoprolol Tartrate [Lopressor] 50 mg PO TID 03/02/14 [History] Nitroglycerin Sl Tabs [Nitrostat] 0.4 mg SUBLINGUAL Q5M PRN 03/02/14 [History] Albuterol Inhaler [Ventolin Hfa Inhaler] 2 puff INHALATION RT-Q4H PRN 05/25/14 [ History] Losartan [Cozaar] 50 mg PO HS 02/01/15 [History] Gemfibrozil 600 mg PO BID 02/04/15 [History] Baclofen [Lioresal] 20 mg PO HS 11/07/15 [History] Naproxen 500 mg PO Q12H PRN 11/07/15 [History] Budesonide/Formoterol Fumarate [Symbicort 160-4.5 Mcg Inhaler] 2 puff INHALATION RT-BID PRN 01/31/16 [History] Aspirin EC [Ecotrin Low Dose] 81 mg PO DAILY 03/03/16 [History] Multivit-Min/FA/Lycopen/Lutein [Centrum Silver Tablet] 1 tab PO DAILY 04/01/16 [ History] Pantoprazole [Protonix] 40 mg PO DAILY #14 tablet. 05/21/16 [Rx] Omega3/Dha/Epa/Fish Oil/Vit D3 [Fish Oil-Vit D3 Softgel] 1 cap PO DAILY [History] Ubidecarenone [Co Q-10] 100 mg PO DAILY 03/30/17 [History] Calcium 1200mg Plus D 1 tab PO DAILY 07/15/17 [History] Magnesium Oxide [Mag-Ox] 400 mg PO DAILY 07/15/17 [History] Ipratropium-Albuterol Nebulize [Duoneb 0.5 mg-3 mg/3 ml Soln] 3 ml INHALATION RT -DAILY 08/24/17 [History] clonazePAM [KlonoPIN] 1 mg PO TID 09/18/17 [History]
[2017-09-23 09:02] VITALS: BP 133/75; PULSE 80
== END 2017-09-23 09:15 | disposition home or self-care (01) ==
LOC: ORWHC2ENDO 07:12
PROVIDERS: ATTEND Surgery Plastic and Reconstructive Surgery
DX: Z12.11 Encounter for screening for malignant neoplasm of colon (principal); K64.4 Residual hemorrhoidal skin tags; K63.5 Polyp of colon; K64.0 First degree hemorrhoids; Z80.0 Family history of malignant neoplasm of digestive organs; J44.9 Chronic obstructive pulmonary disease, unspecified; K21.9 Gastro-esophageal reflux disease without esophagitis; E78.5 Hyperlipidemia, unspecified; I10 Essential (primary) hypertension; M19.90 Unspecified osteoarthritis, unspecified site; I83.90 Asymptomatic varicose veins of unspecified lower extremity; I48.91 Unspecified atrial fibrillation; G47.33 Obstructive sleep apnea (adult) (pediatric); E89.0 Postprocedural hypothyroidism; Z99.89 Dependence on other enabling machines and devices; Z79.82 Long term (current) use of aspirin; Z79.891 Long term (current) use of opiate analgesic; Z79.51 Long term (current) use of inhaled steroids; Z79.899 Other long term (current) drug therapy; Z87.891 Personal history of nicotine dependence
CPT/HCPCS: 88305; 45385; J2001; J2704

== ENCOUNTER 2018-02-08 14:55 | Emergency (ER) | payer OTHER ==
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
[2018-02-08 15:42] LABS: Basophils % (A) 1 %; Eosinophils # (A) 0.3 k/uL (0-0.7); Eosinophils % (A) 5 %; HCT 43.2 % (39.0-53.0); HGB 14.8 gm/dL (13.0-17.5); Lymphocytes # (A) 2.2 k/uL (1.0-4.8); Lymphocytes % (A) 39 %; MCH 30.1 pg (25.0-35.0); MCHC 34.2 g/dL (31.0-37.0); MCV 87.9 fL (80.0-100.0); Mean Platelet Volume 6.8; Monocytes # (A) 0.4 k/uL (0-1.0); Monocytes % (A) 7 %; Neutrophils # (A) 2.6 k/uL (1.3-7.7); Neutrophils % (A) 45 %; Platelet Count 263 k/uL (150-450); RBC 4.92 m/uL (4.30-5.90); RDW 13.5 % (11.5-15.5); WBC 5.7 k/uL (3.8-10.6)
[2018-02-08 15:53] LABS: ALT 58 U/L (21-72); AST 46 U/L (17-59); Alkaline Phosphatase 61 U/L (38-126); Anion Gap 12 mmol/L; Blood Urea Nitrogen 14 mg/dL (9-20); Calcium 10.5 mg/dL (8.4-10.2); Carbon Dioxide 26 mmol/L (22-30); Chloride 104 mmol/L (98-107); Glucose 116 mg/dL (74-99); Lipase 212 U/L (23-300); Potassium 4.6 mmol/L (3.5-5.1); Sodium 142 mmol/L (137-145); Total Bilirubin 0.7 mg/dL (0.2-1.3); Total Protein 8.2 g/dL (6.3-8.2)
[2018-02-08 15:58] LABS: Creatine Kinase 166 U/L (55-170)
[2018-02-08 16:09] LABS: Creatine Kinase MB 1.1 ng/mL (0.0-2.4); Troponin I <0.012 ng/mL (0.000-0.034)
--- NOTE | 2018-02-08 16:23 | XR ---
EXAMINATION TYPE: XR chest 2V DATE OF EXAM: 02/08/2018 COMPARISON: 08/26/2017 HISTORY: 57-year-old male with chest pain TECHNIQUE: PA and lateral views FINDINGS: Heart normal size. Aorta and pulmonary vasculature within normal limits. Mild interstitial prominence is unchanged. No consolidation or pleural effusion. Nodular density at the peripheral right base was present on 08/26/2017 but not seen on studies prior to that. IMPRESSION: 1. Chronic changes without acute cardiopulmonary process. 2. 6 - 8 week follow-up exam recommended for a nodular density at the peripheral right base. This was seen on 08/26/2017 but not on studies prior to that. Nipple shadow is suspected.
[2018-02-08 18:04] VITALS: BP 120/73; PULSE 78; RESP 18; TEMP 98.1
== END 2018-02-08 18:12 | disposition home or self-care (01) ==
LOC: EC 14:55
DX: R07.9 Chest pain, unspecified (principal); I48.91 Unspecified atrial fibrillation; J44.9 Chronic obstructive pulmonary disease, unspecified; I10 Essential (primary) hypertension; G47.30 Sleep apnea, unspecified; F31.9 Bipolar disorder, unspecified; F41.0 Panic disorder [episodic paroxysmal anxiety]; Z79.51 Long term (current) use of inhaled steroids; Z79.82 Long term (current) use of aspirin; Z79.899 Other long term (current) drug therapy; Z87.891 Personal history of nicotine dependence
CPT/HCPCS: 36415; 71046; 80053; 82550; 82553; 83690; 83735; 84484; 85025; 85610; 85730; 93005; 99285

== ENCOUNTER → 2018-02-10 | Outpatient (CLI) | payer OTHER ==
--- NOTE | 2018-02-10 11:18 | XR ---
EXAMINATION TYPE: XR chest 2V DATE OF EXAM: 02/10/2018 COMPARISON: 02/08/2018 HISTORY: Follow-up solitary pulmonary nodule. TECHNIQUE: Frontal and lateral views of the chest are obtained. FINDINGS: Scattered senescent parenchymal changes noted. Nodular density is less conspicuous on the frontal view however there appears to be a nodular density posteriorly on the lateral projection. Consider CT of the chest for further evaluation. No evidence for infiltrate. No evidence for atelectasis. Heart size is stable. Mediastinal structures are stable and grossly unremarkable. No evidence for hilar prominence. Degenerative changes dorsal spine. IMPRESSION: 1. Nodular density is less conspicuous on the frontal view however there appears to be a nodular dens ity posteriorly on the lateral projection. Consider CT of the chest for further evaluation.
== END | disposition home or self-care (01) ==
LOC: RADXRMAIN 10:42
PROVIDERS: ATTEND Family Medicine
DX: R91.1 Solitary pulmonary nodule (principal)
CPT/HCPCS: 71046

== ENCOUNTER → 2018-02-11 | Outpatient (CLI) | payer OTHER ==
--- NOTE | 2018-02-11 11:51 | CT ---
EXAMINATION TYPE: CT chest w con DATE OF EXAM: 02/11/2018 COMPARISON: CT chest of 2014 HISTORY: Solitary pulmonary nodule. CT DLP: 803 mGycm. Automated Exposure Control for Dose Reduction was Utilized. TECHNIQUE: CT scan of the thorax is performed following with IV Contrast, patient injected with 100 mL of Isovue M300. FINDINGS: LUNGS: There is a left apical pulmonary nodule stable from 2014 on series 4 image 11 measuring 4 mm. No pulmonary masses are seen. No focal consolidation. There is no pleural effusion or pneumothorax seen. The tracheobronchial tree is patent. MEDIASTINUM: There are no greater than 1 cm hilar or mediastinal lymph nodes. No pericardial effusi on is seen. OTHER: There is surgical absence of the right thyroid gland with heterogeneity and enlargement of the left thyroid gland. There is diffuse hypoattenuation of the hepatic parenchyma fitting criteria for hepatic steatosis as well as ar fluid attenuated 9 mm solitary hepatic cyst on image 48. Stable calci fications at the left adrenal gland in comparison to exam of 2014. There is a mild compression deformity of the upper lumbar spine similar to exam of 2014. Mild multile chidi degenerative changes of the thoracic spine are noted. IMPRESSION: 1. The stable left apical 4 mm pulmonary nodule dating back to 2014 should be considered benign. 2. Interval surgical excision of the right thyroid gland and diffuse enlargement and heterogeneity of the left thyroid gland. 3. Hepatic steatosis and fluid attenuated 9 mm simple hepatic cyst. 4. Mild compression deformity of the upper lumbar spine similar to exam of 2014. 5. Stable left adrenal gland calcifications unchanged from 2014, likely sequela of prior hemorrhage o r injury.
== END | disposition home or self-care (01) ==
LOC: RADCTMAIN 11:04
PROVIDERS: ATTEND Family Medicine
DX: R91.1 Solitary pulmonary nodule (principal)
CPT/HCPCS: 71260; Q9967

== ENCOUNTER → 2018-02-25 | Outpatient (CLI) | payer OTHER ==
--- NOTE | 2018-02-25 11:14 | ECHOF ---
Referral Reason:R07.9 Chest pain MEASUREMENTS -------- HEIGHT: 172.7 cm WEIGHT: 136.1 kg BP: RVIDd: 3.6 cm (< 3.3) IVSd: 1.6 cm (0.6 - 1.1) LVIDd: 4.8 cm (3.9 - 5.3) LVPWd: 1.6 cm (0.6 - 1.1) IVSs: 2.2 cm LVIDs: 2.7 cm LVPWs: 2.2 cm LAESV Index (A-L): 33.36 ml/m Ao Diam: 3.2 cm (2.0 - 3.7) AV Cusp: 2.1 cm (1.5 - 2.6) LA Diam: 4.4 cm (2.7 - 3.8) MV EXCURSION: 14.837 mm (> 18.000) MV EF SLOPE: 120 mm/s (70 - 150) EPSS: 0.3 cm MV E Real: 0.87 m/s MV DecT: 243 ms MV A Real: 0.84 m/s MV E/A Ratio: 1.05 RAP: 5.00 mmHg RVSP: 8.72 mmHg FINDINGS -------- Sinus rhythm. This was a technically difficult study with suboptimal views. The left ventricular size is normal. There is moderate concentric left ventricular hypertrophy. O verall left ventricular systolic function is normal with, an EF between 55 - 60 %. The right ventricle is mildly enlarged. LA is midly dilated 29-33ml/m2. The right atrial size is normal. Lumason used The aortic valve is trileaflet, and appears structurally normal. No aortic stenosis or regurgitation. The mitral valve is normal. There is trace mitral regurgitation. Trace tricuspid regurgitation present. Right ventricular systolic pressure is normal at < 35 mmHg. The right ventricular systolic pressure, as measured by Doppler, is 8.72mmHg. The pulmonic valve was not well visualized. There is no pulmonic regurgitation present. The aortic root size is normal. IVC Not well visulized. There is no pericardial effusion. CONCLUSIONS -------- 1. Sinus rhythm. 2. This was a technically difficult study with suboptimal views. 3. The left ventricular size is normal. 4. There is moderate concentric left ventricular hypertrophy. 5. Overall left ventricular systolic function is normal with, an EF between 55 - 60 %. 6. The right ventricle is mildly enlarged. 7. LA is midly dilated 29-33ml/m2. 8. Lumason used 9. The aortic valve is trileaflet, and appears structurally normal. No aortic stenosis or regurgitati on. 10. There is trace mitral regurgitation. 11. Trace tricuspid regurgitation present. 12. Right ventricular systolic pressure is normal at < 35 mmHg. 13. The pulmonic valve was not well visualized. 14. The aortic root size is normal. 15. IVC Not well visulized. 16. There is no pericardial effusion. EQUIPMENT SERVICE TECHNICIAN: Merle Garcia RDCS
--- NOTE | 2018-02-25 13:15 | ECHOS ---
STRESS ECHOCARDIOGRAM DATE OF SERVICE: 02/25/2018 INDICATIONS: Chest pain. MEDICATIONS: BASELINE HEART RATE: 75 BASELINE BLOOD PRESSURE: 100/60 MAXIMUM HEART RATE: 141 MAXIMUM BLOOD PRESSURE: 206/65 85% MPHR: 140 100% MPHR: 165 METS: 7.3 MAXIMUM STAGE REACHED: II TOTAL EXERCISE TIME: 5 minutes CLINICAL INFORMATION: Baseline rhythm is sinus mechanism, rate 75, normal axis and intervals, normal electrocardiogram. Baseline blood pressure 100/60 mmHg. Patient exercised on Alok protocol for 5 minutes reaching peak rate of 141 beats per minute which is equal to 85% maximum predicted heart rate. Peak blood pressure 206/65 mmHg. Test was terminated secondary to fatigue. There was no chest pain. Electrocardiograph monitoring revealed no evidence of diagnostic ischemic ST deviation. Baseline echocardiogram revealed normal wall thickness and motion. At peak exercise, there was normal wall motion augmentation with no hypokinesis or dyskinesis. CONCLUSION: 1. Decreased exercise tolerance with normal electrocardiograph response to exercise. 2. Normal stress echocardiogram with no evidence of stress induced ischemia. MMODL / IJN: [id number] /
== END ==
LOC: RADNMMAIN 10:01
PROVIDERS: ATTEND Family Medicine
DX: I11.9 Hypertensive heart disease without heart failure (principal); R07.9 Chest pain, unspecified
CPT/HCPCS: C8929; C8930; Q9950; 93306; 93351

== ENCOUNTER 2018-08-12 03:07 | Emergency (ER) | payer OTHER ==
[2018-08-12 03:20] VITALS: RESP 18
[2018-08-12] MEDS ORDERED: KETOROLAC 60 MG/2 ML VIAL IM STA (03:33)
[2018-08-12] MEDS ORDERED: DIAZEPAM 5 MG TAB PO STA (03:33)
[2018-08-12] MEDS ORDERED: Acetaminophen-Codeine 300-30mg TAB PO STA (03:34)
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
--- NOTE | 2018-08-12 04:44 | XR ---
EXAM: XR Left Ribs and AP Chest, 3 or More Views CLINICAL HISTORY: ITS.REASON XR Reason: Pain TECHNIQUE: Frontal and oblique views of the left ribs and frontal view of the chest. COMPARISON: Right rib radiographs 02/16/2014 FINDINGS: Lungs: No focal pulmonary infiltrates or consolidations. Pleural space: No evidence of pleural effusion or pneumothorax. Heart: Heart size is within normal limits. Mediastinum: Mediastinal structures are unremarkable. Bones/joints: No definite rib fractures identified. IMPRESSION: No definite rib fractures. No evidence of acute cardiopulmonary disease.
[2018-08-12 05:05] VITALS: BP 143/77; PULSE 81; TEMP 98.5
== END 2018-08-12 05:04 | disposition home or self-care (01) ==
LOC: EC 03:07
DX: R07.89 Other chest pain (principal); I48.91 Unspecified atrial fibrillation; J44.9 Chronic obstructive pulmonary disease, unspecified; E78.5 Hyperlipidemia, unspecified; I10 Essential (primary) hypertension; M19.90 Unspecified osteoarthritis, unspecified site; G47.30 Sleep apnea, unspecified; Z99.89 Dependence on other enabling machines and devices; Z95.818 Presence of other cardiac implants and grafts; Z87.891 Personal history of nicotine dependence; Z79.891 Long term (current) use of opiate analgesic; Z79.82 Long term (current) use of aspirin; Z79.899 Other long term (current) drug therapy; Z82.49 Family history of ischemic heart disease and other diseases of the circulatory system
CPT/HCPCS: 93005; 71101; 99284; 96372; J1885

== ENCOUNTER 2018-09-01 00:48 | Emergency (ER) | payer OTHER ==
[2018-09-01 00:54] VITALS: TEMP 98.3
[2018-09-01] MEDS ORDERED: SODIUM CHLORIDE 0.9% 500 ML 500 ML IV STA (01:07)
[2018-09-01] MEDS ORDERED: ASPIRIN 81 MG PO STA (01:07)
[2018-09-01 01:24] LABS: Basophils # (A) 0.1 k/uL (0-0.2); Basophils % (A) 1 %; Eosinophils # (A) 0.2 k/uL (0-0.7); Eosinophils % (A) 3 %; HCT 41.8 % (39.0-53.0); HGB 13.6 gm/dL (13.0-17.5); Lymphocytes % (A) 46 %; MCH 29.1 pg (25.0-35.0); MCHC 32.6 g/dL (31.0-37.0); MCV 89.3 fL (80.0-100.0); Mean Platelet Volume 7.8; Monocytes # (A) 0.5 k/uL (0-1.0); Monocytes % (A) 8 %; Neutrophils # (A) 2.6 k/uL (1.3-7.7); Neutrophils % (A) 39 %; Platelet Count 263 k/uL (150-450); RBC 4.68 m/uL (4.30-5.90); RDW 14.4 % (11.5-15.5); WBC 6.6 k/uL (3.8-10.6)
[2018-09-01 01:33] LABS: ALT 52 U/L (21-72); AST 36 U/L (17-59); African American GFR (CKD) >90 (>60 ml/min/1.73 sqM); Albumin 5.1 g/dL (3.5-5.0); Alkaline Phosphatase 58 U/L (38-126); Anion Gap 10 mmol/L; Blood Urea Nitrogen 16 mg/dL (9-20); Calcium 9.9 mg/dL (8.4-10.2); Carbon Dioxide 26 mmol/L (22-30); Chloride 104 mmol/L (98-107); Glucose 145 mg/dL (74-99); Potassium 4.4 mmol/L (3.5-5.1); Sodium 140 mmol/L (137-145); Total Bilirubin 0.5 mg/dL (0.2-1.3); Total Protein 7.7 g/dL (6.3-8.2)
[2018-09-01 01:34] LABS: Partial Thromboplastin Time 24.5 sec (22.0-30.0); Prothrombin Time 10.3 sec (9.0-12.0)
--- NOTE | 2018-09-01 02:18 | XR ---
EXAM: XR Chest, 2 Views CLINICAL HISTORY: ITS.REASON XR Reason: Chest Pain TECHNIQUE: Frontal and lateral views of the chest. COMPARISON: 08/12/18 FINDINGS: Lungs: No consolidation or mass. Pleural space: No effusion. Heart: No cardiomegaly. Mediastinum: Unremarkable. Bones/joints: No acute findings. IMPRESSION: No acute cardiopulmonary process.
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
[2018-09-01 05:25] VITALS: BP 117/66; PULSE 67; RESP 18
== END 2018-09-01 05:19 | disposition home or self-care (01) ==
LOC: EC 00:48
DX: R07.9 Chest pain, unspecified (principal); M79.622 Pain in left upper arm; J44.9 Chronic obstructive pulmonary disease, unspecified; E78.5 Hyperlipidemia, unspecified; I10 Essential (primary) hypertension; M19.90 Unspecified osteoarthritis, unspecified site; F41.9 Anxiety disorder, unspecified; Z87.891 Personal history of nicotine dependence; Z79.82 Long term (current) use of aspirin; Z79.891 Long term (current) use of opiate analgesic; Z79.899 Other long term (current) drug therapy; Z95.818 Presence of other cardiac implants and grafts; Z82.49 Family history of ischemic heart disease and other diseases of the circulatory system
CPT/HCPCS: 36415; 71046; 80053; 84484; 85025; 85610; 85730; 93005; 96360; 96361; 99285

== ENCOUNTER 2018-12-10 19:55 | Emergency (ER) | payer OTHER ==
[2018-12-10 20:01] VITALS: TEMP 98.8
[2018-12-10] MEDS ORDERED: ASPIRIN 81 MG PO STA (20:14)
[2018-12-10] MEDS ORDERED: SODIUM CHLORIDE 0.9% 500 ML 500 ML IV STA (20:14)
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
[2018-12-10 20:43] LABS: Basophils # (A) 0.1 k/uL (0-0.2); Basophils % (A) 2 %; Eosinophils # (A) 0.3 k/uL (0-0.7); Eosinophils % (A) 4 %; HCT 39.2 % (39.0-53.0); HGB 13.8 gm/dL (13.0-17.5); Lymphocytes # (A) 2.3 k/uL (1.0-4.8); Lymphocytes % (A) 36 %; MCH 30.4 pg (25.0-35.0); MCHC 35.4 g/dL (31.0-37.0); MCV 85.9 fL (80.0-100.0); Mean Platelet Volume 6.9; Monocytes # (A) 0.4 k/uL (0-1.0); Monocytes % (A) 6 %; Neutrophils # (A) 3.1 k/uL (1.3-7.7); Neutrophils % (A) 49 %; Platelet Count 282 k/uL (150-450); RBC 4.56 m/uL (4.30-5.90); RDW 13.4 % (11.5-15.5); WBC 6.3 k/uL (3.8-10.6)
[2018-12-10 20:51] LABS: ALT 95 U/L (21-72); AST 60 U/L (17-59); African American GFR (CKD) >90 (>60 ml/min/1.73 sqM); Albumin 4.6 g/dL (3.5-5.0); Alkaline Phosphatase 58 U/L (38-126); Anion Gap 11 mmol/L; Blood Urea Nitrogen 16 mg/dL (9-20); Calcium 10.3 mg/dL (8.4-10.2); Carbon Dioxide 26 mmol/L (22-30); Chloride 104 mmol/L (98-107); Glucose 146 mg/dL (74-99); Partial Thromboplastin Time 24.3 sec (22.0-30.0); Potassium 4.1 mmol/L (3.5-5.1); Prothrombin Time 10.5 sec (9.0-12.0); Sodium 141 mmol/L (137-145); Total Bilirubin 0.5 mg/dL (0.2-1.3); Total Protein 7.5 g/dL (6.3-8.2)
--- NOTE | 2018-12-10 21:10 | XR ---
EXAMINATION TYPE: XR chest 2V DATE OF EXAM: 12/10/2018 COMPARISON: 09/01/2018 HISTORY: Chest pain TECHNIQUE: Frontal and lateral views of the chest are obtained. FINDINGS: Heart and mediastinum are normal. Lungs are clear. Diaphragm is normal. Bony thorax appear s normal. IMPRESSION: Normal chest. No change.
[2018-12-10 21:11] VITALS: BP 136/77; PULSE 86; RESP 18
[2018-12-10] MEDS ORDERED: NITROGLYCERIN SL TABS 0.4 MG TAB SUBLINGUAL PRN (21:46)
[2018-12-10] MEDS ORDERED: SODIUM CHLORIDE 0.9% 1,000 ML IV SCH (22:00)
--- NOTE | 2018-12-10 22:03 | ED ---
Medical Decision Making - Lab Data Result diagrams: 12/10/18 20:31 12/10/18 20:31 <Michael Easley - Last Filed: 12/10/18 22:00> - Lab Data Result diagrams: 12/10/18 20:31 12/10/18 20:31 <Placido Cruz - Last Filed: 12/14/18 07:36> - Medical Decision Making Plan was for patient being admitted for serial troponins and cardiac evaluation. Patient was initially agreeable, however declined this and he wants to be discharged AMA. Patient completed his anxiety relating his experience in the [facility]. Explained to patient that we cannot rule out this being cardiac in nature. Patient was understanding. Explained risks to patient including . Patient reports that he will return to ER if condition worsens in any way. Patient will follow-up with his preciously established [employer]. Case discussed and pt seen by Dr. Guidry. (Michael Easley) I saw this patient in conjunction with the physician architectural administrative assistant. I performed independent history and physical exam. Agree with case management. (Placido Cruz) - Lab Data Lab Results 12/10/18 12/10/18 12/10/18 Range/Units 20:31 20:31 20:31 WBC 6.3 (3.8-10.6) k/uL RBC 4.56 (4.30-5.90) m/uL Hgb 13.8 (13.0-17.5) gm/dL Hct 39.2 (39.0-53.0) % MCV 85.9 (80.0-100.0) fL MCH 30.4 (25.0-35.0) pg MCHC 35.4 (31.0-37.0) g/dL RDW 13.4 (11.5-15.5) % Plt Count 282 (150-450) k/uL Neutrophils % 49 % Lymphocytes % 36 % Monocytes % 6 % Eosinophils % 4 % Basophils % 2 % Neutrophils # 3.1 (1.3-7.7) k/uL Lymphocytes # 2.3 (1.0-4.8) k/uL Monocytes # 0.4 (0-1.0) k/uL Eosinophils # 0.3 (0-0.7) k/uL Basophils # 0.1 (0-0.2) k/uL PT (9.0-12.0) sec INR (<1.2) APTT (22.0-30.0) sec Sodium 141 (137-145) mmol/L Potassium 4.1 (3.5-5.1) mmol/L Chloride 104 (98-107) mmol/L Carbon Dioxide 26 (22-30) mmol/L Anion Gap 11 mmol/L BUN 16 (9-20) mg/dL Creatinine 0.73 (0.66-1.25) mg/dL Est GFR (CKD-EPI)AfAm >90 (>60 ml/min/1.73 sqM) Est GFR (CKD-EPI)NonAf >90 (>60 ml/min/1.73 sqM) Glucose 146 H (74-99) mg/dL Calcium 10.3 H (8.4-10.2) mg/dL Magnesium 2.0 (1.6-2.3) mg/dL Total Bilirubin 0.5 (0.2-1.3) mg/dL AST 60 H (17-59) U/L ALT 95 H (21-72) U/L Alkaline Phosphatase 58 (38-126) U/L Troponin I (0.000-0.034) ng/mL NT-Pro-B Natriuret Pep pg/mL Total Protein 7.5 (6.3-8.2) g/dL Albumin 4.6 (3.5-5.0) g/dL TSH 1.150 (0.465-4.680) mIU/L 12/10/18 12/10/18 12/10/18 Range/Units 20:31 20:31 20:31 WBC (3.8-10.6) k/uL RBC (4.30-5.90) m/uL Hgb (13.0-17.5) gm/dL Hct (39.0-53.0) % MCV (80.0-100.0) fL MCH (25.0-35.0) pg MCHC (31.0-37.0) g/dL RDW (11.5-15.5) % Plt Count (150-450) k/uL Neutrophils % % Lymphocytes % % Monocytes % % Eosinophils % % Basophils % % Neutrophils # (1.3-7.7) k/uL Lymphocytes # (1.0-4.8) k/uL Monocytes # (0-1.0) k/uL Eosinophils # (0-0.7) k/uL Basophils # (0-0.2) k/uL PT 10.5 (9.0-12.0) sec INR 1.0 (<1.2) APTT 24.3 (22.0-30.0) sec Sodium (137-145) mmol/L Potassium (3.5-5.1) mmol/L Chloride (98-107) mmol/L Carbon Dioxide (22-30) mmol/L Anion Gap mmol/L BUN (9-20) mg/dL Creatinine (0.66-1.25) mg/dL Est GFR (CKD-EPI)AfAm (>60 ml/min/1.73 sqM) Est GFR (CKD-EPI)NonAf (>60 ml/min/1.73 sqM) Glucose (74-99) mg/dL Calcium (8.4-10.2) mg/dL Magnesium (1.6-2.3) mg/dL Total Bilirubin (0.2-1.3) mg/dL AST (17-59) U/L ALT (21-72) U/L Alkaline Phosphatase (38-126) U/L Troponin I <0.012 (0.000-0.034) ng/mL NT-Pro-B Natriuret Pep 15 pg/mL Total Protein (6.3-8.2) g/dL Albumin (3.5-5.0) g/dL TSH (0.465-4.680) mIU/L Disposition Is patient prescribed a controlled substance at d/c from ED?: No <Micahel Easley - Last Filed: 12/10/18 22:00> <Placido Cruz - Last Filed: 12/14/18 07:36> Clinical Impression: Chest pain, Palpitations Disposition: Left Against Medical Advice Condition: Fair Additional Instructions: Patient to adhere to previously discussed treatment plan and will take medication(s) as directed. Patient to follow up with PCP in 1-2 days. Patient to return to ED if symptoms do not improve. Follow-up with design and sales consultant tomorrow. Return immediately to ER if chest pain or palpitations returns. Referrals: Leticia Quach DO [Primary Care Provider] - 1-2 days Ezequiel Vidal MD [STAFF PHYSICIAN] - 1-2 days
[2018-12-11] MEDS ORDERED: ASPIRIN 325 MG TAB PO SCH (09:00)
== END 2018-12-10 22:07 | disposition left against medical advice (07) ==
LOC: EC 19:55
DX: R00.2 Palpitations (principal); R07.2 Precordial pain; J44.9 Chronic obstructive pulmonary disease, unspecified; E78.5 Hyperlipidemia, unspecified; I10 Essential (primary) hypertension; M19.90 Unspecified osteoarthritis, unspecified site; F41.9 Anxiety disorder, unspecified; Z87.891 Personal history of nicotine dependence; Z79.82 Long term (current) use of aspirin; Z79.891 Long term (current) use of opiate analgesic; Z79.899 Other long term (current) drug therapy; Z95.818 Presence of other cardiac implants and grafts; Z86.79 Personal history of other diseases of the circulatory system; Z82.49 Family history of ischemic heart disease and other diseases of the circulatory system; Z53.20 Procedure and treatment not carried out because of patient's decision for unspecified reasons
CPT/HCPCS: 36415; 71046; 80053; 83735; 83880; 84443; 84484; 85025; 85610; 85730; 93005; 96360; 99285

== ENCOUNTER 2018-12-11 17:57 | Emergency (ER) | payer OTHER ==
[2018-12-11 18:05] VITALS: BP 137/73; PULSE 85; RESP 18; TEMP 98.3
[2018-12-11] MEDS ORDERED: LORazepam 1 MG TAB PO STA (18:24)
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
== END 2018-12-11 18:54 | disposition home or self-care (01) ==
LOC: EC 17:57
DX: F41.9 Anxiety disorder, unspecified (principal); Z82.49 Family history of ischemic heart disease and other diseases of the circulatory system; I20.9 Angina pectoris, unspecified; J44.9 Chronic obstructive pulmonary disease, unspecified; E78.5 Hyperlipidemia, unspecified; I10 Essential (primary) hypertension; M19.90 Unspecified osteoarthritis, unspecified site; Z87.891 Personal history of nicotine dependence; Z79.51 Long term (current) use of inhaled steroids; Z79.82 Long term (current) use of aspirin; Z79.891 Long term (current) use of opiate analgesic; Z79.899 Other long term (current) drug therapy; Z95.818 Presence of other cardiac implants and grafts; Z86.79 Personal history of other diseases of the circulatory system
CPT/HCPCS: 99285

== ENCOUNTER → 2018-12-21 | Outpatient (CLI) | payer OTHER | LOC: SLEEP 13:18 | PROVIDERS: ATTEND Internal Medicine Critical Care Medicine | DX: Z53.9 Procedure and treatment not carried out, unspecified reason (principal) ==

== ENCOUNTER → 2018-12-23 | Outpatient (CLI) | payer OTHER ==
--- NOTE | 2018-12-23 11:35 | CONS ---
CONSULTATION DATE OF SERVICE: 12/23/2018 This 58-year-old gentleman has been evaluated in the sleep center for obstructive sleep apnea-hypopnea syndrome. HISTORY OF PRESENT ILLNESS/SLEEP-WAKE EVALUATION: The patient has been diagnosed with obstructive sleep apnea about 5 years ago in another institution, was recommended to use treatment with CPAP, but he did not feel comfortable with the machine, did not feel that pressure is right for him, subsequently was not able to use CPAP therapy. Presently his sleep schedule from midnight until 6 a.m. He sometimes has problem with falling asleep. He has TV set in bedroom. He sleeps on the side position with loud snoring and episodes of stopped breathing during the sleep. He also grinding teeth, wakes up with dry mouth, panic attack, palpitations, sweating. Generally, he wakes up at night around 4 times with nocturia. No history of hypnagogic hallucinations, sleep paralysis or cataplexy. [place] Sleepiness Scale is 4. He usually takes 1 nap a day around 3 p.m. He usually feels restored after nap. No vivid dreams during nap. PAST MEDICAL HISTORY: Positive for hypertension, anxiety, episodes of palpitations, COPD, BPH, thyroid tumor, episodes of angina, varicose vein problems. PAST SURGICAL HISTORY: Resection of thyroid for benign tumor, eye surgery in childhood, surgery for varicose veins on both legs. MEDICATIONS: Hydrocodone-acetaminophen, metoprolol, losartan, clonidine, gemfibrozil, aspirin, nitroglycerin, pantoprazole, naproxen, baclofen, albuterol, fluticasone, magnesium, fish oil, Centrum Silver supplements. SOCIAL HISTORY: Positive for smoking for about 20 pack/years; quit in 1995. He smoked for 13 years, about 1-1/2 pack a day. Alcohol consumption none. FAMILY HISTORY: Hypertension, heart problems, hyperlipidemia, arthritis, lung problems, sleep apnea, cancer, diabetes, liver problem, acid reflux, ulcers, thyroid problems, mental illness. REVIEW OF SYSTEMS: Multiple awakenings from sleep, episodes of tiredness and sleepiness during the day, episodes of anxiety. PHYSICAL EXAMINATION: During physical exam, gentleman without distress. VITAL SIGNS: BP 107/70, HR 72, RR 16, height 5 feet 7 inches, weight 308, body mass index 48.2, temperature 98.0, oxygen saturation at room air 97%. HEENT: PERRLA, EOMI. Oropharynx extremely low position of soft palate, Mallampati 4. Slight restriction of nasal breathing. Wide neck 21-1/2 inches in circumference. NECK: Supple, no JVD. Thyroid is not palpable. LUNGS: Clear to percussion and to auscultation. Good air exchange. No wheezing or rhonchi. HEART: S1, S2 regular. No murmurs, gallops, or rubs. ABDOMEN: Obese. EXTREMITIES: No clubbing or cyanosis. CLINICAL SUPPORT MANAGER: Awake, alert, and oriented X3. Cranial nerves 2 to 7 intact. There is no fasciculation or atrophy. noted. No focal deficits observed. IMPRESSION: 1. History of obstructive sleep apnea documented about 5 years ago. The patient snores, wakes up from sleep with episodes of stopped breathing and nocturia multiple times, extremely low position of soft palate, wide neck, obstructive sleep apnea-hypopnea syndrome. 2. Obesity, body mass index 48.2. 3. Hypertension. 4. Anxiety. 5. History of palpitations. 6. Chronic obstructive pulmonary disease. 7. History of benign prostatic hypertrophy. 8. Status post resection of thyroid for benign tumor, normal thyroid profile according to patient at the present time. 9. Status post eye surgery in childhood. 10.Back problems. 11.History of episodes of angina. Results of cardiac cath were negative according to patient. 12.History of venous problems of low leg, status post surgical treatment. PLAN: 1. Polysomnography for evaluation of patient's breathing during sleep. 2. CPAP/BiPAP titration if sleep study confirms obstructive sleep apnea-hypopnea syndrome. 3. Preferable position during sleep on the side. 4. No driving if patient feels any sleepiness. 5. I will see patient for follow up visit to explain results of testing and following plan. Thank you very much for referring this patient for consultation. Sincerely, Kuldip Sung MD, PhD, FAASM Diplomat of [employer] Operator of [facility] [place] MMODL / IJN: [id number] /
== END | disposition home or self-care (01) ==
LOC: SLEEP 09:38
PROVIDERS: ATTEND Internal Medicine
DX: G47.33 Obstructive sleep apnea (adult) (pediatric) (principal); R35.1 Nocturia; E66.9 Obesity, unspecified; I10 Essential (primary) hypertension; J44.9 Chronic obstructive pulmonary disease, unspecified; F41.9 Anxiety disorder, unspecified; E89.0 Postprocedural hypothyroidism; Z68.42 Body mass index [BMI] 45.0-49.9, adult; Z86.79 Personal history of other diseases of the circulatory system; Z87.438 Personal history of other diseases of male genital organs; Z87.891 Personal history of nicotine dependence; Z98.890 Other specified postprocedural states; Z79.891 Long term (current) use of opiate analgesic; Z79.899 Other long term (current) drug therapy; Z79.82 Long term (current) use of aspirin; Z79.1 Long term (current) use of non-steroidal anti-inflammatories (NSAID); Z79.51 Long term (current) use of inhaled steroids
CPT/HCPCS: 99211

== ENCOUNTER → 2018-12-23 | Outpatient (CLI) | payer OTHER ==
--- NOTE | 2018-12-23 15:54 | US ---
EXAMINATION TYPE: US scrotum with doppler. Grayscale and color Doppler Duplex imaging performed of bethel melendez scrotum. DATE OF EXAM: 12/23/2018 COMPARISON: NONE CLINICAL HISTORY: SWOLLEN TESTICLES R93.813. bilateral testes swelling x 5 years. EXAM MEASUREMENTS: TESTICLES: Right Testicle: 4.3 x 3.7 x 3.1 cm Left Testicle: 4.4 x 3.8 x 3.3 cm EPIDIDYMIS HEAD: Bilateral not visualized Doppler performed to assess for testicular vascularity; good bilateral color flow and waveforms are s een. Presence of hydroceles: small right, small left Presence of varicoceles: No In bilateral scrotal sacs, multiple cystic appearing lesions visualized. Unable to determine origin. Unable to visualize bilateral epididymal head or tissue. IMPRESSION: Extratesticular multicystic lesions bilaterally could reflect epididymal etiology or othe r. No suspicious focal intratesticular masses. Small free fluid or hydroceles bilaterally inferior to the scrotal cystic or multicystic septated cystic lesions.
== END | disposition home or self-care (01) ==
LOC: RADUSWWP 15:04
PROVIDERS: ATTEND Urology
DX: R93.813 Abnormal radiologic findings on diagnostic imaging of testicles, bilateral (principal)
CPT/HCPCS: 76870; 93975

== ENCOUNTER → 2019-03-10 | Outpatient (CLI) | payer OTHER ==
--- NOTE | 2019-03-10 14:00 | SFUN ---
SLEEP CENTER FOLLOW UP NOTE DATE OF SERVICE: 03/10/2019 A 58-year-old gentleman who has been followed in the Sleep Center for treatment of severe obstructive sleep apnea-hypopnea syndrome. Recently, patient had a polysomnogram which showed severe sleep apnea with apnea- hypopnea index 42.3. Subsequently, then patient had CPAP, titration done up to the pressure of 14 cm of water. The best results was reached at the pressure 13 cm of water. At that pressure, apnea-hypopnea index was 2.2, but on all other pressures, apnea-hypopnea index was higher. I discussed results of the sleep studies with patient in detail. Patient received CPAP unit, started to use it. CPAP pressure was at the level of 14 cm of water. The patient developed significant dry mouth while using CPAP equipment He try usage for 2 nights and time when he developed dry mouth also could be related to some medications which patient started to take at the same time including clonidine at bedtime which increased dryness in his mouth. He increased humidity in CPAP unit to maximal of 8, but continued to have significant dryness in the mouth. Patient used it for one night with a humidity at a level of 8. Because of significant dryness of the mouth and patient cannot control his symptoms, He returned CPAP unit. He tried Dream Wear full-face mask which was the same mask which we tried during the titration and then he tried Simplus full-face mask which covered mouth and nose, but again it was the second night on the machine and he again had the significant dryness in the mouth. Without the machine, patient still continued to have some dryness in the mouth and he believes that he does open his mouth during the sleep. [place] Sleepiness Scale today is 2. MEDICATIONS: Metoprolol, losartan, clonidine, gemfibrozil, aspirin, nitroglycerin, pantoprazole, tamsulosin, Naproxen, baclofen, albuterol inhaler, fluticasone with salmeterol, Hydrocodone, acetaminophen. PHYSICAL EXAM: Patient in no distress. BP 132/77, HR 81, RR 16, oxygen saturation at room air 94%. Temperature 98.4, weight 311.8 pounds. OROPHARYNX: extremely low position of soft palate, Mallampati 4. ABDOMEN: Obese. NECK: Supple, no JVD. Thyroid is not palpable. LUNGS: Clear to percussion and to auscultation. Good air exchange. No wheezing or rhonchi. HEART: S1, S2 regular. No murmurs, gallops, or rubs. EXTREMITIES: No clubbing or cyanosis. BUSINESS SUPPORT MANAGER: Awake, alert, and oriented X3. Cranial nerves 2 to 7 intact. There is no fasciculation or atrophy. noted. No focal deficits observed. IMPRESSION: 1. Severe obstructive sleep apnea-hypopnea syndrome; apnea-hypopnea index 42.3 with oxygen desaturation to 78.3%. Patient tried CPAP treatment at home for 2 nights, was not able to continue it secondary to significant dryness in the mouth, even after increasing humidity to maximal level. 2. Obesity. 3. History of hypertension. 4. Anxiety. 5. Chronic obstructive pulmonary disease. 6. Benign prostatic hypertrophy. 7. History of varicose veins of the legs. 8. A thyroid tumor status post resection of thyroid for the tumor. Pathology showed that tumor is benign. PLAN: 1. We will try a nasal pillow mask with chin strap. 2. I will change regimen in CPAP unit to automatic with range of pressure of 5-15. 3. Humidity at the maximal level. 4. Losing weight. 5. No driving if feeling sleepiness. 6. Followup visit in the several weeks, the patient will continue to have problems with the usage of the CPAP with a different types of mask, we will consider to try to do the titration with possibly BiPAP. Thank you very much for allowing me to participate in the management of your patient. Sincerely, Kuldip Sung MD, PhD, FAASM Diplomat of [employer] Recorder [facility] [place] MMODL / IJN: [id number] /
== END | disposition home or self-care (01) ==
LOC: SLEEP 11:32
PROVIDERS: ATTEND Internal Medicine
DX: G47.33 Obstructive sleep apnea (adult) (pediatric) (principal); E66.9 Obesity, unspecified; F41.9 Anxiety disorder, unspecified; N40.0 Benign prostatic hyperplasia without lower urinary tract symptoms; J44.9 Chronic obstructive pulmonary disease, unspecified; Z86.79 Personal history of other diseases of the circulatory system; Z99.89 Dependence on other enabling machines and devices; Z98.890 Other specified postprocedural states; Z79.82 Long term (current) use of aspirin; Z79.1 Long term (current) use of non-steroidal anti-inflammatories (NSAID); Z79.891 Long term (current) use of opiate analgesic; Z79.899 Other long term (current) drug therapy

== ENCOUNTER 2019-03-29 21:44 | Emergency (ER) | payer OTHER ==
[2019-03-29] MEDS ORDERED: LABETALOL 5 MG/ML VIAL MDV IVP STA (22:31)
[2019-03-29 22:42] LABS: Basophils % (A) 1 %; Eosinophils # (A) 0.2 k/uL (0-0.7); Eosinophils % (A) 4 %; HCT 40.5 % (39.0-53.0); HGB 14.5 gm/dL (13.0-17.5); Lymphocytes # (A) 2.4 k/uL (1.0-4.8); Lymphocytes % (A) 42 %; MCH 31.8 pg (25.0-35.0); MCHC 35.8 g/dL (31.0-37.0); MCV 88.7 fL (80.0-100.0); Mean Platelet Volume 7.7; Monocytes # (A) 0.4 k/uL (0-1.0); Monocytes % (A) 7 %; Neutrophils # (A) 2.6 k/uL (1.3-7.7); Neutrophils % (A) 44 %; Platelet Count 249 k/uL (150-450); RBC 4.56 m/uL (4.30-5.90); RDW 13.3 % (11.5-15.5); WBC 5.8 k/uL (3.8-10.6)
[2019-03-29 22:45] VITALS: RESP 18
[2019-03-29 22:49] LABS: ALT 92 U/L (4-49); AST 64 U/L (17-59); African American GFR (CKD) >90 (>60 ml/min/1.73 sqM); Alkaline Phosphatase 67 U/L (38-126); Anion Gap 10 mmol/L; Blood Urea Nitrogen 19 mg/dL (9-20); Calcium 10.3 mg/dL (8.4-10.2); Carbon Dioxide 27 mmol/L (22-30); Chloride 101 mmol/L (98-107); Glucose 182 mg/dL (74-99); Non-African American GFR(CKD) >90 (>60 ml/min/1.73 sqM); Partial Thromboplastin Time 23.7 sec (22.0-30.0); Potassium 4.3 mmol/L (3.5-5.1); Sodium 138 mmol/L (137-145); Total Bilirubin 0.8 mg/dL (0.2-1.3); Total Protein 7.8 g/dL (6.3-8.2)
--- NOTE | 2019-03-29 22:50 | XR ---
EXAMINATION TYPE: XR chest 2V DATE OF EXAM: 03/29/2019 COMPARISON: 12/10/2018 HISTORY: Chest pain TECHNIQUE: FINDINGS: Heart and mediastinum are normal. Lungs are clear. Diaphragm is normal. Bony thorax appears normal. IMPRESSION: Normal chest. No change.
[2019-03-29 23:12] VITALS: BP 120/69; PULSE 74; TEMP 97.8
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
== END 2019-03-29 23:33 | disposition home or self-care (01) ==
LOC: EC 21:44
DX: R07.9 Chest pain, unspecified (principal); M79.622 Pain in left upper arm; F41.9 Anxiety disorder, unspecified; J44.9 Chronic obstructive pulmonary disease, unspecified; E78.5 Hyperlipidemia, unspecified; I10 Essential (primary) hypertension; M19.90 Unspecified osteoarthritis, unspecified site; Z87.891 Personal history of nicotine dependence; Z79.82 Long term (current) use of aspirin; Z79.891 Long term (current) use of opiate analgesic; Z79.899 Other long term (current) drug therapy; Z95.818 Presence of other cardiac implants and grafts; Z82.49 Family history of ischemic heart disease and other diseases of the circulatory system; Z53.8 Procedure and treatment not carried out for other reasons; Z53.29 Procedure and treatment not carried out because of patient's decision for other reasons
CPT/HCPCS: 36415; 71046; 80053; 83735; 84484; 85025; 85610; 85730; 99285

== ENCOUNTER 2019-05-18 09:25 | Day surgery (SDC) | payer OTHER ==
[2019-05-13 13:54] VITALS: BMI 45.6
[~2019-05-18 09:25] MED LIST changes: +DEXAMETHASONE SOD PHOSPHATE 10 MG/ML 1 ML VIAL IV ONE; +HEPARIN SODIUM,PORCINE 5,000 UNIT/ML 1 ML VIAL SQ ONE; +HYDROmorphone 0.5 MG/0.5 ML SYRINGE IVP PRN; +LIDOCAINE 1% (10MG/ML) FOR IV START INTRADERMA PRN; +MIDAZOLAM 2 MG/2 ML VIAL IV PRN; +ONDANSETRON 4 MG/2 ML VIAL IVP ONE; +ceFAZolin 3 GM in SODIUM CHLORIDE 0.9% 100 ML IVPB ONE; +fentaNYL (PF) 50 MCG/ML 2 ML AMP IVP PRN
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
[2019-05-18] MEDS ORDERED: ALBUTEROL NEBULIZED 2.5 MG/3 ML INHALATION STA (09:50)
[2019-05-18] MEDS ORDERED: LIDOCAINE 1% INJ 10MG/ML (20 ML MDV) ONE (10:11)
[2019-05-18] MEDS ORDERED: GLYCOPYRROLATE 0.2 MG/ML 2 ML VIAL ONE (10:11)
[2019-05-18] MEDS ORDERED: ROCURONIUM BROMIDE 10 MG/ML 5 ML VIAL IV ONE (10:11)
[2019-05-18] MEDS ORDERED: SUCCINYLCHOLINE CHLORIDE VIAL 200 MG/10 ML VIAL IV ONE (10:11)
[2019-05-18] MEDS ORDERED: fentaNYL (PF) 50 MCG/ML 2 ML AMP ONE (10:11)
[2019-05-18] MEDS ORDERED: NEOSTIGMINE 1 MG/ML 10 ML VIAL ONE (10:11)
[2019-05-18] MEDS ORDERED: PHENYLEPHRINE-0.9% NACL SYG 1 MG/10 ML SYRINGE ONE (10:11)
[2019-05-18] MEDS ORDERED: PROPOFOL 10 MG/ML 20 ML VIAL IV ONE (10:11)
[2019-05-18] MEDS ORDERED: MIDAZOLAM 2 MG/2 ML VIAL ONE (10:11)
[2019-05-18] MEDS ORDERED: BUPIVACAINE (PF) 0.5% 30 ML VIAL SQ ONE (10:45)
[2019-05-18 11:11] VITALS: TEMP 97.9
--- NOTE | 2019-05-18 11:19 | P.OP ---
Date of Procedure: 05/18/19 Preoperative Diagnosis: Cholecystitis Cholelithiasis Postoperative Diagnosis: Cholecystitis Cholelithiasis Procedure(s) Performed: Laparoscopic cholecystectomy Anesthesia: VIKTOR Surgeon: Isaias Hawkins Pathology: other (Gallbladder) Condition: stable Disposition: PACU Description of Procedure: The patient was placed on the operating table. The patient received a general endotracheal tube anesthesia. The patients abdomen was prepped and draped in the usual sterile fashion. Through an infraumbilical stab incision, the fascia of the anterior abdominal wall was grasped with a pair of Kochers and then the Veress needle was placed in the peritoneal cavity. Position of the Veress needle was confirmed with positive drop test. The abdomen was then insufflated. After adequate insufflation, the 10 mm trocar was placed in the peritoneal cavity. Following this the laparoscope was placed in the peritoneal cavity. The patient was placed in the head-up, right side up position and then a 5 mm trocar was placed in the right lateral and right subcostal position under direct visualization. A 8 mm trocar was placed in the epigastric position. The gallbladder was grasped in the fundus and infundibulum. Traction on the gallbladder was placed in the lateral and the cephalad positions. The triangle of Calot was visualized.. The cystic duct was bluntly dissected until the union of the cystic duct and common bile duct was seen. A critical view of safety was achieved. The cystic duct was then divided and sealed with the Harmonic scissors. A PDS Endoloop was then placed throughout the cystic duct stump. The cystic artery divided and sealed with the Harmonic scissors. The gallbladder was then removed from the liver bed using Harmonic scissors. The gallbladder was then extracted through the epigastric port site. Operative field was checked for any bleeding spots and Harmonic scissors was used to coagulate the liver bed. The abdomen was irrigated. The trocars were removed. The skin was closed using interrupted 3-0 Vicryl suture. Dermabond dressing were applied. The patient tolerated the procedure well.
[2019-05-18] MEDS ORDERED: KETOROLAC 30 MG/ML 1 ML VIAL IVP ONE (11:23)
[2019-05-18 11:49] VITALS: PULSE 67; RESP 18
[2019-05-18 12:00] VITALS: BP 126/80
== END 2019-05-18 13:07 | disposition home or self-care (01) ==
LOC: OR 09:25
PROVIDERS: ATTEND Surgery
DX: K80.10 Calculus of gallbladder with chronic cholecystitis without obstruction (principal); I47.1 Supraventricular tachycardia; G47.33 Obstructive sleep apnea (adult) (pediatric); E78.5 Hyperlipidemia, unspecified; E66.9 Obesity, unspecified; I27.20 Pulmonary hypertension, unspecified; I08.1 Rheumatic disorders of both mitral and tricuspid valves; I47.2 Ventricular tachycardia; I11.9 Hypertensive heart disease without heart failure; I48.91 Unspecified atrial fibrillation; I20.9 Angina pectoris, unspecified; J44.9 Chronic obstructive pulmonary disease, unspecified; K21.9 Gastro-esophageal reflux disease without esophagitis; M19.90 Unspecified osteoarthritis, unspecified site; E89.0 Postprocedural hypothyroidism; Z79.82 Long term (current) use of aspirin; Z79.899 Other long term (current) drug therapy; Z79.51 Long term (current) use of inhaled steroids; Z68.42 Body mass index [BMI] 45.0-49.9, adult; Z99.89 Dependence on other enabling machines and devices; Z82.49 Family history of ischemic heart disease and other diseases of the circulatory system; Z98.890 Other specified postprocedural states; Z87.891 Personal history of nicotine dependence; Z80.42 Family history of malignant neoplasm of prostate
CPT/HCPCS: 94640; 88304; 47562; J2250; J0330; J1644; J1100; J2710; J0690; J2405; J2001; J3010; J1885; J2370; J2704

== ENCOUNTER → 2019-06-02 | Outpatient (CLI) | payer OTHER ==
--- NOTE | 2019-06-02 11:33 | NM ---
EXAMINATION TYPE: NM thyroid image only DATE OF EXAM: 06/02/2019 COMPARISON: CT chest February 11, 2018. HISTORY: Thyroid nodule per order. History of right lobe thyroidectomy 2018. Patient states symptoms of irritability and vomiting and palpitations. TECHNIQUE: After the intravenous administration of 10.24 mCi Tc 99m Sodium Pertechnetate. FINDINGS: There is normal distribution of activity throughout the left lobe extending towards the isthmus witho ut area of nonuptake or cold nodule. No uptake right thyroid bed corresponds to history of right-side d lobectomy . IMPRESSION: Normal thyroid scan for patient with history of right thyroid lobectomy.
== END | disposition home or self-care (01) ==
LOC: RADNMMAIN 10:32
PROVIDERS: ATTEND Surgery
DX: E04.1 Nontoxic single thyroid nodule (principal); E89.0 Postprocedural hypothyroidism
CPT/HCPCS: 78013; A9512

== ENCOUNTER 2019-07-27 06:59 | Emergency (ER) | payer OTHER ==
[2019-07-27 07:06] VITALS: RESP 18
[2019-07-27 08:02] LABS: Basophils % (A) 0 %; Eosinophils # (A) 0.2 k/uL (0-0.7); Eosinophils % (A) 2 %; HCT 43.2 % (39.0-53.0); HGB 14.5 gm/dL (13.0-17.5); Lymphocytes # (A) 2.3 k/uL (1.0-4.8); Lymphocytes % (A) 28 %; MCH 30.4 pg (25.0-35.0); MCHC 33.6 g/dL (31.0-37.0); MCV 90.5 fL (80.0-100.0); Mean Platelet Volume 7.3; Monocytes # (A) 0.5 k/uL (0-1.0); Monocytes % (A) 7 %; Neutrophils # (A) 5.1 k/uL (1.3-7.7); Neutrophils % (A) 60 %; Platelet Count 246 k/uL (150-450); RBC 4.78 m/uL (4.30-5.90); RDW 13.4 % (11.5-15.5); WBC 8.4 k/uL (3.8-10.6)
[2019-07-27 08:11] LABS: ALT 117 U/L (4-49); AST 67 U/L (17-59); African American GFR (CKD) >90 (>60 ml/min/1.73 sqM); Alkaline Phosphatase 61 U/L (38-126); Anion Gap 13 mmol/L; Blood Urea Nitrogen 15 mg/dL (9-20); Carbon Dioxide 22 mmol/L (22-30); Chloride 102 mmol/L (98-107); Glucose 172 mg/dL (74-99); Non-African American GFR(CKD) >90 (>60 ml/min/1.73 sqM); Potassium 4.1 mmol/L (3.5-5.1); Sodium 137 mmol/L (137-145); Total Bilirubin 0.8 mg/dL (0.2-1.3); Total Protein 7.9 g/dL (6.3-8.2)
[2019-07-27 08:14] LABS: D-Dimer 0.42 mg/L FEU (<0.60); Partial Thromboplastin Time 22.6 sec (22.0-30.0); Prothrombin Time 10.5 sec (9.0-12.0)
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
--- NOTE | 2019-07-27 08:57 | XR ---
EXAMINATION TYPE: XR chest 2V DATE OF EXAM: 07/27/2019 COMPARISON: 03/29/2019 HISTORY: Chest pain TECHNIQUE: Frontal and lateral views of the chest are obtained. FINDINGS: There is no focal air space opacity. No evidence for pneumothorax. No pleural effusion. The cardiac silhouette size is within normal limits. The osseous structures are grossly intact. IMPRESSION: 1. No acute cardiopulmonary process.
[2019-07-27 09:20] VITALS: BP 137/89; PULSE 92; TEMP 98
== END 2019-07-27 09:18 | disposition home or self-care (01) ==
LOC: EC 06:59
DX: E66.01 Morbid (severe) obesity due to excess calories (principal); R06.89 Other abnormalities of breathing; R00.0 Tachycardia, unspecified; R73.9 Hyperglycemia, unspecified; Z68.42 Body mass index [BMI] 45.0-49.9, adult; I48.91 Unspecified atrial fibrillation; J44.9 Chronic obstructive pulmonary disease, unspecified; I10 Essential (primary) hypertension; G47.33 Obstructive sleep apnea (adult) (pediatric); F41.0 Panic disorder [episodic paroxysmal anxiety]; F31.9 Bipolar disorder, unspecified; Z79.82 Long term (current) use of aspirin; Z79.51 Long term (current) use of inhaled steroids; Z79.899 Other long term (current) drug therapy; Z87.891 Personal history of nicotine dependence; Z99.89 Dependence on other enabling machines and devices
CPT/HCPCS: 36415; 71046; 80053; 83036; 83880; 84484; 85025; 85379; 85610; 85730; 93005; 99285

== ENCOUNTER → 2019-11-17 | Outpatient (CLI) | payer OTHER ==
--- NOTE | 2019-11-17 20:55 | SFUN ---
SLEEP CENTER FOLLOW UP NOTE DATE OF SERVICE: 11/17/2019 This 59-year-old gentleman has been followed in the sleep center for treatment of obstructive sleep apnea-hypopnea syndrome. Recently the patient had a CPAP titration which showed that CPAP was not effective for the treatment of obstructive sleep apnea, and then we did another test with BiPAP. With the BiPAP, the patient's respiration improved and he feels much better with BiPAP versus the CPAP previously. Again, he was not able to tolerate CPAP equipment at home. I discussed the results of his sleep studies with the patient. He explained that he would prefer a different size of the full-face mask for use with the BiPAP. [place] Sleepiness Scale today is zero. PHYSICAL EXAMINATION: GENERAL: A pleasant patient in no distress. VITAL SIGNS: BP 133/72, HR 70, RR 15, height 67-1/2 inches, weight 304, BMI 46.9, oxygen saturation at room air 96%. HEENT: PERRLA, EOMI. Evaluation of oropharynx showed tongue protrudes midline. Low position of soft palate. NECK: Supple. No JVD. Thyroid is not palpable. LUNGS: Clear to percussion and to auscultation. Good air exchange. No wheezing or rhonchi. HEART: S1, S2 regular. No murmurs, gallops or rubs. ABDOMEN: Obese. EXTREMITIES: No clubbing or cyanosis. PRODUCER: Awake, alert, and oriented X3. Cranial nerves 2 to 7 intact. There is no fasciculation or atrophy. noted. No focal deficits observed. IMPRESSION: 1. Severe obstructive sleep apnea-hypopnea syndrome. 2. Anxiety. 3. History of hypertension. 4. Chronic obstructive pulmonary disease. 5. Periodic limb movements during titration. 6. Benign prostatic hypertrophy. 7. History of varicose veins of lower legs. 8. Status post thyroid resection for benign tumor. PLAN: 1. Patient will be started on treatment with BiPAP and should use equipment every night for the whole night. 2. Losing weight. 3. Sleep hygiene with regular time in bed for at least 7-1/2 to 8 hours. 4. No driving if feeling any sleepiness. 5. I will see the patient after he is started on treatment with BiPAP to evaluate clinical response on treatment, compliance with treatment, and to make any necessary adjustments related to mask fitting, pressure and humidification. Thank you very much for allowing me to participate in the management of your patient. Sincerely, Kuldip Sung MD, PhD, FAASM Diplomat of [employer] [employer] [employer] Culinary Assistant of [facility] [place] [employer] / RIMA: [id number] /
== END | disposition home or self-care (01) ==
LOC: SLEEP 13:24
PROVIDERS: ATTEND Internal Medicine
DX: G47.33 Obstructive sleep apnea (adult) (pediatric) (principal); Z99.89 Dependence on other enabling machines and devices; F41.9 Anxiety disorder, unspecified; J44.9 Chronic obstructive pulmonary disease, unspecified; G47.61 Periodic limb movement disorder; N40.0 Benign prostatic hyperplasia without lower urinary tract symptoms; I10 Essential (primary) hypertension; Z86.79 Personal history of other diseases of the circulatory system; Z86.39 Personal history of other endocrine, nutritional and metabolic disease

== ENCOUNTER → 2019-11-23 | Outpatient (CLI) | payer OTHER ==
--- NOTE | 2019-11-23 10:34 | US ---
EXAMINATION TYPE: US thyroid st tissue head/neck DATE OF EXAM: 11/23/2019 COMPARISON: 59-year-old male NM 06/02/2019, US 09/24/2015 CLINICAL HISTORY: E04.1 thyroid nodule. Right thyroidectomy TECHNIQUE: Multiple sonographic images of the thyroid gland are obtained. FINDINGS: GLAND SIZE: Right Lobe: Surgically absent Left Lobe: 7.0 x 3.6 x 4.5 cm Overall Parenchyma: Diffusely heterogeneous Isthmus Thickness: 0.8 cm NODULES LEFT: # of nodules measured on left: 0 ISTHMUS: # of nodules measured in the isthmus: 0 Bilateral neck scanned, no evidence of lymphadenopathy. Left thyroid lobe is enlarged and markedly he terogeneous. IMPRESSION: 1. Status post right thyroid lobectomy. 2. The left lobe of the thyroid gland is enlarged at 7.0 cm and markedly heterogeneous. The degree of heterogeneity makes it difficult to pick out discrete nodules. Consider diffuse thyroiditis or multi nodular goiter.
== END | disposition home or self-care (01) ==
LOC: RADUSWWP 08:53
PROVIDERS: ATTEND Surgery
DX: E04.9 Nontoxic goiter, unspecified (principal); Z90.89 Acquired absence of other organs
CPT/HCPCS: 76536

== ENCOUNTER → 2019-12-15 | Outpatient (CLI) | payer OTHER ==
--- NOTE | 2019-12-16 01:25 | SFUN ---
SLEEP CENTER FOLLOW UP NOTE DATE OF SERVICE: 12/15/2019 A 59-year-old gentleman had been followed in Sleep Center for treatment of severe obstructive sleep apnea-hypopnea syndrome. Patient has difficulties with using of the BiPAP equipment with relationship to the mask. He received full face mask, but it is medium size. The patient does not feel comfortable with that, feels the size of the mask is too small. I checked BiPAP unit. Pressure is 16/12 cm of water. Usage is only 6 nights over 22 days with average usage 1.5 hours per night. Apnea-hypopnea index 5.8, very high leak 58 L/minute. MEDICATIONS: Metformin, metoprolol, losartan, clonidine, gemfibrozil, aspirin, nitroglycerin, pantoprazole, tamsulosin, Naprosyn, baclofen, fluticasone, hydrocodone acetaminophen. PHYSICAL EXAMINATION: GENERAL: Patient in no distress. VITAL SIGNS: BP 137/71, HR 80, RR 15, weight 307.8 pounds, oxygen saturation at room air 95%. HEENT: PERRLA, EOMI. Oropharynx low position of soft palate. NECK: Supple, no JVD. Thyroid is not palpable. LUNGS: Clear to percussion and to auscultation. Good air exchange. No wheezing or rhonchi. HEART: S1, S2 regular. No murmurs, gallops, or rubs. ABDOMEN: Obese. EXTREMITIES: No clubbing or cyanosis. PLUMBING SERVICE TECHNICIAN: Awake, alert, and oriented X3. Cranial nerves 2 to 7 intact. There is no fasciculation or atrophy. noted. No focal deficits observed. IMPRESSION: 1. Severe obstructive sleep apnea-hypopnea syndrome. Patient has difficulties with the usage of BiPAP most probably with relationship of the size of the mask. 2. Obesity. 3. History of hypertension. 4. Anxiety. 5. Chronic obstructive pulmonary disease. 6. Benign prostatic hypertrophy. 7. Status post thyroid resection for benign tumor. 8. History of varicose veins of the legs. PLAN: 1. Prescription for Simplex full face mask, large size. 2. Patient will continue to use PAP equipment every night for the whole night. 3. Sleep hygiene with regular time in bed for at least 7-1/2 to 8 hours. 4. Precautions related to driving. No driving if feeling sleepiness. 5. I will maintain all necessary prescription for PAP supplies including mask, tube, filters. 6. Watching weight. 7. No driving if feeling sleepiness. 8. Follow-up visit in 1-1/2 months or earlier if patient has any problems. Thank you very much for allowing me to participate in management of your patient. Sincerely, Kuldip Sung MD, PhD, FAASM Diplomat of [place] [employer] [employer] Brasswind Instrument Repairer of [facility] [place] MMODL / VERONAN: [id number] /
== END | disposition home or self-care (01) ==
LOC: SLEEP 10:47
PROVIDERS: ATTEND Internal Medicine
DX: G47.33 Obstructive sleep apnea (adult) (pediatric) (principal); E66.9 Obesity, unspecified; F41.9 Anxiety disorder, unspecified; J44.9 Chronic obstructive pulmonary disease, unspecified; N40.0 Benign prostatic hyperplasia without lower urinary tract symptoms; Z87.898 Personal history of other specified conditions; Z99.89 Dependence on other enabling machines and devices; Z86.79 Personal history of other diseases of the circulatory system

== ENCOUNTER → 2020-01-19 | Outpatient (CLI) | payer OTHER ==
--- NOTE | 2020-01-19 23:02 | SFUN ---
SLEEP CENTER FOLLOW UP NOTE DATE OF SERVICE: 01/19/2020 This patient is a 59-year-old gentleman who has been followed in Sleep Center for treatment of obstructive sleep apnea-hypopnea syndrome. Patient continues to have problems with his BiPAP machine. He feels that his mouth is very dry and he cannot use the machine because of that. Without the machine his mouth is also dry, probably because of medications, but it is less than with the machine. I checked his BiPAP unit. Maximal inspiratory pressure 16, minimal respiratory pressure 12. Pressure support is 4. The patient did not use it for the last month. Leak from the previous months up to 47 L/minute. Apnea-hypopnea index at the same time was normal at 4.5. MEDICATIONS: Metoprolol, metformin, losartan, clonidine, gemfibrozil, aspirin, nitroglycerine, pantoprazole, tamsulosin, Naprosyn, baclofen, fluticasone, hydrocodone, acetaminophen. PHYSICAL EXAMINATION: GENERAL: A pleasant patient in no distress. VITAL SIGNS: BP 139/89, HR 76, RR 15, weight 308 pounds, temperature 98.2, oxygen saturation at room air 96%. HEENT: PERRLA, EOMI. Evaluation of oropharynx showed tongue protrudes midline. Low position of soft palate. NECK: Supple. No JVD. Thyroid is not palpable. LUNGS: Clear to percussion and to auscultation. Good air exchange. No wheezing or rhonchi. HEART: S1, S2 regular. No murmurs, gallops or rubs. ABDOMEN: Obese. EXTREMITIES: No clubbing or cyanosis. CLEANING PORTER: Awake, alert, and oriented X3. Cranial nerves 2 to 7 intact. There is no fasciculation or atrophy. noted. No focal deficits observed. IMPRESSION: 1. Severe obstructive sleep apnea-hypopnea syndrome. The patient cannot use BiPAP equipment; feels dryness in the mouth. 2. Obesity. 3. History of hypertension. 4. Anxiety. 5. Chronic obstructive pulmonary disease. 6. Benign prostatic hypertrophy. 7. Status post thyroid resection for benign tumor. 8. History of varicose veins of the legs. PLAN: 1. I changed the pressure in the patient's BiPAP unit to low range, with a maximal inspiratory pressure of 12 and minimal expiratory pressure of 6 because I believe his dryness could be related to the level of pressure. 2. Patient will continue to use full-face mask with a chin strap. 3. Losing weight. 4. No driving if feeling any sleepiness. 5. Follow-up visit in one month. Thank you very much for allowing me to participate in the management of your patient. Sincerely, Kuldip Sung MD, PhD, FAASM Diplomat of [place] [employer] [place] [employer] Buttonhole Facer of [facility] [place] MMODL / VERONAN: [id number] /
== END | disposition home or self-care (01) ==
LOC: SLEEP 13:32
PROVIDERS: ATTEND Internal Medicine
DX: G47.33 Obstructive sleep apnea (adult) (pediatric) (principal); J44.9 Chronic obstructive pulmonary disease, unspecified; N40.0 Benign prostatic hyperplasia without lower urinary tract symptoms; F41.9 Anxiety disorder, unspecified; E66.9 Obesity, unspecified; Z98.890 Other specified postprocedural states; Z86.79 Personal history of other diseases of the circulatory system; Z79.84 Long term (current) use of oral hypoglycemic drugs; Z79.82 Long term (current) use of aspirin; Z79.899 Other long term (current) drug therapy; Z79.1 Long term (current) use of non-steroidal anti-inflammatories (NSAID); Z79.52 Long term (current) use of systemic steroids; Z79.891 Long term (current) use of opiate analgesic

== ENCOUNTER 2020-03-13 11:48 | Emergency (ER) | payer OTHER ==
[2020-03-13 11:50] VITALS: TEMP 98.1
--- NOTE | 2020-03-13 13:27 | CT ---
EXAMINATION TYPE: CT foot RT wo con DATE OF EXAM: 03/13/2020 COMPARISON: None. HISTORY: Rt foot swelling, fall injury 4 months ago. Pain extending into toes CT DLP: 251.5 mGycm Automated exposure control for dose reduction was used. FINDINGS: No acute fracture or dislocation is seen. Flexion and the toes is present. Lisfranc joints are mainta ined. Moderate to large size inferior calcaneal spur. There is ossification along the distal Achilles tendon. Hindfoot anatomy is preserved. Normal sinus tarsi fat is seen. No suspicious solid or cystic mass or fluid collection. No significant soft tissue swelling. IMPRESSION: As above.
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
[2020-03-13 13:50] VITALS: BP 125/85; PULSE 63; RESP 18
== END 2020-03-13 13:40 | disposition home or self-care (01) ==
LOC: EC 11:48
DX: M77.8 Other enthesopathies, not elsewhere classified (principal); M79.671 Pain in right foot; I48.91 Unspecified atrial fibrillation; J44.9 Chronic obstructive pulmonary disease, unspecified; E11.9 Type 2 diabetes mellitus without complications; K21.9 Gastro-esophageal reflux disease without esophagitis; I10 Essential (primary) hypertension; G47.30 Sleep apnea, unspecified; E07.9 Disorder of thyroid, unspecified; F41.0 Panic disorder [episodic paroxysmal anxiety]; F31.9 Bipolar disorder, unspecified; Z79.82 Long term (current) use of aspirin; Z79.51 Long term (current) use of inhaled steroids; Z79.899 Other long term (current) drug therapy; Z99.89 Dependence on other enabling machines and devices; Z87.891 Personal history of nicotine dependence
CPT/HCPCS: 99283

== ENCOUNTER → 2020-07-05 | Outpatient (CLI) | payer OTHER ==
--- NOTE | 2020-07-05 22:43 | SFUN ---
SLEEP CENTER FOLLOW UP NOTE DATE OF SERVICE: 07/05/2020 59-year-old gentleman has been followed in Sleep Center for treatment of obstructive sleep apnea-hypopnea syndrome. [place]. The patient last time was in January of 2020. At that time, he was on treatment with BiPAP, had some difficulties with BiPAP. I changed the pressure in the unit and unfortunately since that time, because patient has had difficulties to use machine in because of not fully compliance, machine was taken from him. Patient continued to have problems with his sleep. He snores, has multiple awakenings from sleep, has episodes of sleepiness. Jackson Sleepiness Scale is scale today is 5. MEDICATIONS: 1. Metoprolol 50 mg 3 times a day. 2. Losartan 50 mg once a day. 3. Clonidine 0.1 mg once a day. 4. Aspirin 81 mg once a day. 5. Metformin 850 mg twice a day. 6. Pepcid 40 mg once a day. 7. Gemfibrozil 600 mg twice a day. 8. Tamsulosin 0.4 mg once a day. 9. Baclofen 20 mg once a day. 10.Hydrocodone up to 4 times a day. 11.Advair Diskus twice a day. 12.ProAir 90 mcg twice a day. 13.Albuterol on a p.r.n. basis. 14.Vitamin supplements. PHYSICAL EXAM: Patient in no distress. BP 133/81, HR 79, RR 18, height 5 feet 7 inches, weight 298.6, temperature 96.7, oxygen saturation at room air 94%. Oropharynx low position of soft palate. NECK: Supple, no JVD. Thyroid is not palpable. LUNGS: Clear to percussion and to auscultation. Good air exchange. No wheezing or rhonchi. HEART: S1, S2 regular. No murmurs, gallops, or rubs. ABDOMEN: Obese. Soft and nontender. Bowel sounds are present. No organomegaly appreciated. EXTREMITIES: No clubbing or cyanosis. WEAVER WIRE LOOM: Awake, alert, and oriented X3. Cranial nerves 2 to 7 intact. There is no fasciculation or atrophy. noted. No focal deficits observed. IMPRESSION: 1. Severe obstructive sleep apnea hypopneas syndrome. The patient had difficulties to use BiPAP equipment. BiPAP machine was taken from him. I discussed details about necessity to use CPAP equipment every night for the whole night. 2. Obesity. 3. History of hypertension. 4. Anxiety. 5. Chronic obstructive pulmonary disease. 6. Benign prostatic hypertrophy. 7. Status post thyroid resection for benign tumor. 8. History of varicose veins of the legs. PLAN: 1. Patient will get a BiPAP unit. 2. The patient should use equipment every night for the whole night. 3. Adjustments of humidity should be done to prevent developing of dryness in the mouth. 4. We will have to change the patient's mask to be sure that he feels comfortable with the mask. Again does not have dryness in the mouth. Options may include dream wear mask, full face or nasal mask including possibility of using nasal pillow mask with a chinstrap. 5. Patient promise to follow all recommendations and to use BiPAP equipment every night for the whole night. 6. Losing weight. 7. No driving if feeling sleepiness. 8. I will see patient for follow-up visit to recheck his compliance with treatment. Thank you very much for allowing me to participate in management of your patient. Sincerely, Kuldip Sung MD, PhD, FAASM Diplomat of [employer] Lead Rec[employer] of [facility] [place] MMODL / IJN: [id number] /
== END | disposition home or self-care (01) ==

== ENCOUNTER 2020-10-07 20:15 | Emergency (ER) | payer OTHER ==
[2020-10-07 20:34] VITALS: RESP 16; TEMP 98.3
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
[2020-10-07 22:02] VITALS: BP 155/78; PULSE 78
== END 2020-10-07 21:56 | disposition home or self-care (01) ==
LOC: EC 20:15
DX: S80.12XA Contusion of left lower leg, initial encounter (principal); I10 Essential (primary) hypertension; E11.9 Type 2 diabetes mellitus without complications; J44.9 Chronic obstructive pulmonary disease, unspecified; I20.9 Angina pectoris, unspecified; I48.91 Unspecified atrial fibrillation; M19.90 Unspecified osteoarthritis, unspecified site; Z87.891 Personal history of nicotine dependence; Z79.899 Other long term (current) drug therapy; Z79.82 Long term (current) use of aspirin; Z79.52 Long term (current) use of systemic steroids; V18.0XXA Pedal cycle driver injured in noncollision transport accident in nontraffic accident, initial encounter
CPT/HCPCS: 99283

== ENCOUNTER 2020-10-25 01:47 | Emergency (ER) | payer OTHER ==
[2020-10-25 01:56] VITALS: RESP 20
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
--- NOTE | 2020-10-25 03:05 | XR ---
EXAMINATION TYPE: XR chest 1V portable DATE OF EXAM: 10/25/2020 COMPARISON: 07/27/2019 HISTORY: Foreign body in the throat TECHNIQUE: FINDINGS: Heart and mediastinum are normal. Lungs are clear of consolidation. I see no evidence of ra diopaque foreign body over the chest and the neck. Trachea is midline. There is poor inspiration. IMPRESSION: Inspiration decreased compared to old exam. No foreign body seen. No sign of atelectasis.
--- NOTE | 2020-10-25 03:12 | CT ---
EXAMINATION TYPE: CT soft tissue neck wo con DATE OF EXAM: 10/25/2020 COMPARISON: 09/19/2015 HISTORY: FB throat. CT DLP: 649.8 mGycm Automated exposure control for dose reduction was used. Images obtained from the mid orbits to the aortic arch without contrast. FINDINGS: Prevertebral soft tissues are intact. Adenoids appear intact. Epiglottis is normal. Subglottic trache a appears normal. I see no evidence of esophageal foreign body. There is no evidence of tonsil mass. The trachea appears intact. Subglottic trachea is intact. There is significant asymmetric enlargement of the left thyroid lobe with heterogeneous density. Righ t thyroid lobe appears absent. Thyroid gland measures 5.7 x 3.8 cm in the transverse dimensions. The length is 7.5 cm. There is some mild deviation of the trachea to the right side due to the thyroid ma ss. I see no evidence of adenopathy in the superior mediastinum. There is normal calcification of the cricoid cartilage and thyroid cartilage. The posterior nasopharynx appears intact. There is normal a eration of the maxillary and ethmoid and sphenoid sinuses which are mostly visualized. IMPRESSION: Spondylotic changes in the cervical spine. No evidence of a foreign body in the neck. Significant enlargement left thyroid lobe consistent with multinodular goiter that is increased princess red to old exam. There is been apparent right thyroid lobectomy compared to old exam.
[2020-10-25] MEDS ORDERED: DEXAMETHASONE SOD PHOSPHATE 10 MG/ML 1 ML VIAL IM STA (03:33)
[2020-10-25 03:56] VITALS: BP 146/89; PULSE 71; TEMP 97.7
== END 2020-10-25 03:45 | disposition home or self-care (01) ==
LOC: EC 01:47
DX: J02.9 Acute pharyngitis, unspecified (principal); E01.0 Iodine-deficiency related diffuse (endemic) goiter; E11.9 Type 2 diabetes mellitus without complications; I10 Essential (primary) hypertension; J44.9 Chronic obstructive pulmonary disease, unspecified; M19.90 Unspecified osteoarthritis, unspecified site; Z79.51 Long term (current) use of inhaled steroids; Z79.82 Long term (current) use of aspirin; Z87.891 Personal history of nicotine dependence
CPT/HCPCS: 71045; 70490; 99284; 96372; J1100

== ENCOUNTER 2020-11-14 07:11 | Day surgery (SDC) | payer OTHER ==
[2020-11-09 15:56] VITALS: BMI 45.6
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
[~2020-11-14 07:11] MED LIST changes: -DEXAMETHASONE SOD PHOSPHATE 10 MG/ML 1 ML VIAL IV ONE; -HEPARIN SODIUM,PORCINE 5,000 UNIT/ML 1 ML VIAL SQ ONE; -HYDROmorphone 0.5 MG/0.5 ML SYRINGE IVP PRN; -MIDAZOLAM 2 MG/2 ML VIAL IV PRN; -ONDANSETRON 4 MG/2 ML VIAL IVP ONE; -ceFAZolin 3 GM in SODIUM CHLORIDE 0.9% 100 ML IVPB ONE; -fentaNYL (PF) 50 MCG/ML 2 ML AMP IVP PRN
[2020-11-14 07:36] VITALS: TEMP 96.8
[2020-11-14 07:56] LABS: Glucose,Whole Blood 137 mg/dL (75-99)
[2020-11-14] MEDS ORDERED: PROPOFOL 10 MG/ML 20 ML VIAL IV ONE (08:07)
[2020-11-14] MEDS ORDERED: LIDOCAINE 1% INJ 10MG/ML (20 ML MDV) ONE (08:07)
--- NOTE | 2020-11-14 08:28 | P.PCN ---
Date of Procedure: 11/14/20 Description of Procedure: PREOPERATIVE DIAGNOSIS: Colonoscopy screening. Personal history colon polyps Family history colon cancer, father POSTOPERATIVE DIAGNOSIS: Colonoscopy screening. Personal history colon polyps Family history colon cancer, father OPERATION: Colonoscopy to the cecum, ileocecal valve and appendiceal orifice. SURGEON: Nicol Yo MD. ANESTHESIA: MAC. INDICATIONS: The patient is a 60-year-old male who presents for colonoscopy screening. Last colonoscopy 5 years ago. enefits and risks were described and informed consent was obtained. DESCRIPTION OF PROCEDURE: The patient had undergone Sutab prep. The patient had been brought into the operating room and laid in the left lateral decubitus position. After adequate intravenous sedation, the rectum was examined with 2% lidocaine jelly. No external hemorrhoids were encountered. The rectal tone was within normal limits. No lesions were palpated in the rectal vault. An Olympus colonoscope was advanced until the cecum, ileocecal valve and appendiceal orifice were clearly viewed. The prep was good. No scattered diverticulosis was encountered. No colonic polyps were found. No evidence of focal colitis was found. Retroflexion of the scope demonstrated grade 2 internal hemorrhoids without active bleeding or inflammation. The colon was desufflated. The patient had tolerated the procedure well. Withdrawal time was over 6 minutes. FINDINGS: [place]chick preparation quality scale 2 (1-5) Internal hemorrhoids, grade 2 No external prolapsed hemorrhoids. No arteriovenous malformations. No adenomatous polyps. No focal colitis. RECOMMENDATIONS: Lower endoscopy in 3 years, 2023 due to high risk personal history family history Plan - Discharge Summary Discharge Rx Participant: No New Discharge Prescriptions: Continue Nitroglycerin Sl Tabs [Nitrostat] 0.4 mg SUBLINGUAL Q5M PRN PRN Reason: Chest Pain Hydrocodone/Acetaminophen [[place] 10-325] 1 tab PO QID Metoprolol Tartrate [Lopressor] 50 mg PO TID Albuterol Inhaler (Mhu) [Ventolin Hfa Inhaler (Mhu)] 2 puff INHALATION RT-Q4H PRN PRN Reason: Shortness Of Breath Losartan [Cozaar] 50 mg PO HS Aspirin EC [Ecotrin Low Dose] 81 mg PO DAILY Multivit-Min/FA/Lycopen/Lutein [Centrum Silver Tablet] 1 tab PO DAILY Magnesium Oxide [Mag-Ox] 400 mg PO DAILY cloNIDine HCL [Catapres] 0.1 mg PO HS Albuterol Sulfate [Proair Hfa] 1 - 2 puff INHALATION Q6HR PRN PRN Reason: sob Fluticasone/Salmeterol [Advair 250-50 Diskus] 1 puff INHALATION BID [place]-3/Dha/Epa/Fish Oil [Fish Oil 500 mg Softgel] 300 mg PO DAILY Albuterol Nebulized [Ventolin Nebulized] 2.5 mg INHALATION QAM metFORMIN HCL [Glucophage] 1,000 mg PO BID gemfibroziL [Lopid] 600 mg PO AC-BID Famotidine [Pepcid] 40 mg PO 1600 Cyanocobalamin (Vitamin B-12) [Vitamin B-12] 1,000 mcg PO DAILY Ascorbic Acid [Vitamin C] 1,000 mg PO DAILY Ubidecarenone [Co Q-10] 400 mg PO DAILY Garlic 1 each PO DAILY Calcium W/ Vitamin D-Unk Dose 1 tab PO DAILY Discharge Medication List Hydrocodone/Acetaminophen [[place] 10-325] 1 tab PO QID 03/02/14 [History] Metoprolol Tartrate [Lopressor] 50 mg PO TID 03/02/14 [History] Nitroglycerin Sl Tabs [Nitrostat] 0.4 mg SUBLINGUAL Q5M PRN 03/02/14 [History] Albuterol Inhaler (Mhu) [Ventolin Hfa Inhaler (Mhu)] 2 puff INHALATION RT-Q4H PRN 05/25/14 [History] Losartan [Cozaar] 50 mg PO HS 02/01/15 [History] Aspirin EC [Ecotrin Low Dose] 81 mg PO DAILY 03/03/16 [History] Multivit-Min/FA/Lycopen/Lutein [Centrum Silver Tablet] 1 tab PO DAILY 04/01/16 [History] Magnesium Oxide [Mag-Ox] 400 mg PO DAILY 07/15/17 [History] cloNIDine HCL [Catapres] 0.1 mg PO HS 05/18/19 [History] Albuterol Nebulized [Ventolin Nebulized] 2.5 mg INHALATION QAM 11/09/20 [History] Albuterol Sulfate [Proair Hfa] 1 - 2 puff INHALATION Q6HR PRN 11/09/20 [History] Ascorbic Acid [Vitamin C] 1,000 mg PO DAILY 11/09/20 [History] Calcium W/ Vitamin D-Unk Dose 1 tab PO DAILY 11/09/20 [History] Cyanocobalamin (Vitamin B-12) [Vitamin B-12] 1,000 mcg PO DAILY 11/09/20 [History] Famotidine [Pepcid] 40 mg PO 1600 11/09/20 [History] Fluticasone/Salmeterol [Advair 250-50 Diskus] 1 puff INHALATION BID 11/09/20 [History] Garlic 1 each PO DAILY 11/09/20 [History] [place]-3/Dha/Epa/Fish Oil [Fish Oil 500 mg Softgel] 300 mg PO DAILY 11/09/20 [History] Ubidecarenone [Co Q-10] 400 mg PO DAILY 11/09/20 [History] gemfibroziL [Lopid] 600 mg PO AC-BID 11/09/20 [History] metFORMIN HCL [Glucophage] 1,000 mg PO BID 11/09/20 [History] Follow up Appointment(s)/Referral(s): Nicol Yo MD [STAFF PHYSICIAN] - As Needed Patient Instructions/Handouts: *[facility] - (Anesthesia) Endoscopy Discharge Instructions Activity/Diet/Wound Care/Special Instructions: Colonoscopy 3 years, 2023 Discharge Disposition: HOME SELF-CARE
[2020-11-14 08:44] VITALS: BP 140/80; PULSE 79; RESP 16
== END 2020-11-14 09:24 | disposition home or self-care (01) ==
LOC: ORWHC2ENDO 07:11
PROVIDERS: ATTEND Surgery Plastic and Reconstructive Surgery
DX: Z12.11 Encounter for screening for malignant neoplasm of colon (principal); I48.91 Unspecified atrial fibrillation; E11.9 Type 2 diabetes mellitus without complications; K21.9 Gastro-esophageal reflux disease without esophagitis; I10 Essential (primary) hypertension; M19.90 Unspecified osteoarthritis, unspecified site; E07.9 Disorder of thyroid, unspecified; G47.33 Obstructive sleep apnea (adult) (pediatric); Z79.890 Hormone replacement therapy; Z79.82 Long term (current) use of aspirin; Z79.84 Long term (current) use of oral hypoglycemic drugs; Z80.0 Family history of malignant neoplasm of digestive organs; Z87.19 Personal history of other diseases of the digestive system
CPT/HCPCS: 45378; J2001; J2704

== ENCOUNTER → 2020-12-19 | Outpatient (CLI) | payer OTHER | END | disposition home or self-care (01) | LOC: LABWHC1 09:54 | PROVIDERS: ATTEND Physician Assistant | DX: N40.0 Benign prostatic hyperplasia without lower urinary tract symptoms (principal) | CPT/HCPCS: 36415; 84153 ==

== ENCOUNTER → 2021-04-30 | Outpatient (CLI) | payer OTHER ==
--- NOTE | 2021-05-01 08:34 | US ---
EXAMINATION TYPE: US thyroid st tissue head/neck DATE OF EXAM: 04/30/2021 COMPARISON: CT 10/25/2020, & US 11/23/2019 CLINICAL HISTORY: E04.1 Thyroid nodule 6 mo f/u. GLAND SIZE: Right Lobe: Surgically absent cm Left Lobe: 7.5 x 3.5 x 4.1 cm Overall Parenchyma: heterogeneous Isthmus Thickness: 1.1 cm NODULES LEFT: # of nodules measured on left: 0 ISTHMUS: # of nodules measured in the isthmus: 0 Bilateral neck scanned, no evidence of lymphadenopathy. Right lobe surgically absent. Left lobe diffusely heterogeneous and enlarged. IMPRESSION: Enlargement of the left thyroid lobe with surgical absence of the right thyroid lobe. Diffuse heterog eneity without distinct nodule.
== END | disposition home or self-care (01) ==
LOC: RADUSWWP 16:17
PROVIDERS: ATTEND Surgery
DX: E04.9 Nontoxic goiter, unspecified (principal)
CPT/HCPCS: 76536

== ENCOUNTER 2021-07-11 19:03 | Emergency (ER) | payer OTHER ==
[2021-07-11 19:25] VITALS: TEMP 98.8
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
[2021-07-11 21:03] LABS: Basophils # (A) 0.1 k/uL (0-0.2); Basophils % (A) 1 %; Eosinophils # (A) 0.3 k/uL (0-0.7); Eosinophils % (A) 4 %; HCT 42.2 % (39.0-53.0); HGB 14.3 gm/dL (13.0-17.5); Lymphocytes # (A) 2.8 k/uL (1.0-4.8); Lymphocytes % (A) 39 %; MCH 30.4 pg (25.0-35.0); MCHC 33.9 g/dL (31.0-37.0); MCV 89.7 fL (80.0-100.0); Mean Platelet Volume 7.5; Monocytes # (A) 0.4 k/uL (0-1.0); Monocytes % (A) 6 %; Neutrophils # (A) 3.4 k/uL (1.3-7.7); Neutrophils % (A) 48 %; Platelet Count 303 k/uL (150-450); RDW 13.4 % (11.5-15.5); WBC 7.2 k/uL (3.8-10.6)
--- NOTE | 2021-07-11 21:07 | XR ---
EXAMINATION: XR chest 1V portable DATE AND TIME: 07/11/2021 8:59 PM CLINICAL INDICATION: chest pain TECHNIQUE: AP upright portable, 2 AP views COMPARISON: AP upright portable 10/25/2020 FINDINGS: The overlying soft tissues are prominent. The lungs are clear. The pleural spaces are negative. The cardiac silhouette is not enlarged. The remainder of the mediastinal silhouette is unremarkable. The skeletal structures and soft tissues are negative for acute findings. IMPRESSION: NO ACUTE PROCESS.
[2021-07-11 21:12] LABS: African American GFR (CKD) >90 (>60 ml/min/1.73 sqM); Anion Gap 10 mmol/L; Blood Urea Nitrogen 16 mg/dL (9-20); Calcium 10.5 mg/dL (8.4-10.2); Carbon Dioxide 28 mmol/L (22-30); Chloride 101 mmol/L (98-107); Glucose 182 mg/dL (74-99); Non-African American GFR(CKD) >90 (>60 ml/min/1.73 sqM); Potassium 4.5 mmol/L (3.5-5.1); Sodium 139 mmol/L (137-145)
[2021-07-11] MEDS ORDERED: ASPIRIN 81 MG PO STA (21:48)
[2021-07-11 22:08] VITALS: BP 145/84; PULSE 82; RESP 18
== END 2021-07-11 22:08 | disposition home or self-care (01) ==
LOC: EC 19:03
DX: R07.89 Other chest pain (principal); J44.9 Chronic obstructive pulmonary disease, unspecified; I10 Essential (primary) hypertension; Z79.899 Other long term (current) drug therapy; Z87.891 Personal history of nicotine dependence; Z79.51 Long term (current) use of inhaled steroids; Z79.82 Long term (current) use of aspirin
CPT/HCPCS: 36415; 71045; 80048; 84484; 85025; 93005; 99285

== ENCOUNTER 2021-07-31 02:51 | Emergency (ER) | payer OTHER ==
[2021-07-31 02:55] VITALS: RESP 18; TEMP 97.9
[2021-07-31 03:31] LABS: INR 0.9 (<1.2); Partial Thromboplastin Time 24.2 sec (22.0-30.0); Prothrombin Time 10.3 sec (9.0-12.0)
[2021-07-31 03:38] LABS: Basophils % (A) 1 %; Eosinophils # (A) 0.4 k/uL (0-0.7); Eosinophils % (A) 6 %; HCT 41.5 % (39.0-53.0); HGB 14.1 gm/dL (13.0-17.5); Lymphocytes % (A) 43 %; MCH 30.9 pg (25.0-35.0); MCV 90.8 fL (80.0-100.0); Mean Platelet Volume 7.4; Monocytes # (A) 0.5 k/uL (0-1.0); Monocytes % (A) 7 %; Neutrophils # (A) 2.9 k/uL (1.3-7.7); Neutrophils % (A) 41 %; Platelet Count 322 k/uL (150-450); RBC 4.56 m/uL (4.30-5.90); RDW 13.9 % (11.5-15.5); WBC 7.1 k/uL (3.8-10.6)
[2021-07-31 03:39] LABS: ALT 67 U/L (4-49); AST 47 U/L (17-59); African American GFR (CKD) >90 (>60 ml/min/1.73 sqM); Alkaline Phosphatase 56 U/L (38-126); Anion Gap 11 mmol/L; Blood Urea Nitrogen 15 mg/dL (9-20); Calcium 10.1 mg/dL (8.4-10.2); Carbon Dioxide 23 mmol/L (22-30); Chloride 103 mmol/L (98-107); Glucose 152 mg/dL (74-99); Magnesium 1.9 mg/dL (1.6-2.3); Non-African American GFR(CKD) >90 (>60 ml/min/1.73 sqM); Potassium 4.5 mmol/L (3.5-5.1); Sodium 137 mmol/L (137-145); Total Bilirubin 0.4 mg/dL (0.2-1.3); Total Protein 7.7 g/dL (6.3-8.2)
[2021-07-31 04:14] VITALS: PULSE 78
--- NOTE | 2021-07-31 04:14 | XR ---
EXAMINATION TYPE: XR chest 2V DATE OF EXAM: 07/31/2021 COMPARISON: 07/11/2021 HISTORY: Chest pain TECHNIQUE: 2 views FINDINGS: Heart and mediastinum are normal. Lungs are clear. Diaphragm is normal. Bony thorax appears normal. IMPRESSION: Normal chest. No change.
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
[2021-07-31 05:46] VITALS: BP 141/77
== END 2021-07-31 05:45 | disposition home or self-care (01) ==
LOC: EC 02:51
DX: R07.89 Other chest pain (principal); J44.9 Chronic obstructive pulmonary disease, unspecified; I10 Essential (primary) hypertension; Z79.899 Other long term (current) drug therapy; Z79.51 Long term (current) use of inhaled steroids; Z87.891 Personal history of nicotine dependence; Z79.82 Long term (current) use of aspirin
CPT/HCPCS: 36415; 71046; 80053; 83735; 84484; 85025; 85610; 85730; 93005; 99285

== ENCOUNTER 2021-09-10 04:13 | Emergency (ER) | payer OTHER ==
[2021-09-10 04:18] VITALS: RESP 18
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
[2021-09-10 05:38] LABS: Basophils % (A) 1 %; Eosinophils # (A) 0.4 k/uL (0-0.7); Eosinophils % (A) 7 %; HCT 38.5 % (39.0-53.0); HGB 13.3 gm/dL (13.0-17.5); Lymphocytes # (A) 2.1 k/uL (1.0-4.8); Lymphocytes % (A) 35 %; MCH 31.3 pg (25.0-35.0); MCHC 34.5 g/dL (31.0-37.0); MCV 90.7 fL (80.0-100.0); Mean Platelet Volume 7.4; Monocytes # (A) 0.5 k/uL (0-1.0); Monocytes % (A) 8 %; Neutrophils # (A) 2.9 k/uL (1.3-7.7); Neutrophils % (A) 47 %; Platelet Count 239 k/uL (150-450); RBC 4.24 m/uL (4.30-5.90); RDW 13.6 % (11.5-15.5)
[2021-09-10 05:57] LABS: Partial Thromboplastin Time 25.3 sec (22.0-30.0); Prothrombin Time 10.9 sec (9.0-12.0)
--- NOTE | 2021-09-10 05:58 | XR ---
EXAM: XR Chest, 2 Views CLINICAL HISTORY: ITS.REASON XR Reason: Chest Pain TECHNIQUE: Frontal and lateral views of the chest. COMPARISON: No relevant prior studies available. FINDINGS: Lungs: Unremarkable. No consolidation. Pleural space: Unremarkable. No pneumothorax. Heart: Unremarkable. No cardiomegaly. Mediastinum: Unremarkable. Bones/joints: Unremarkable. IMPRESSION: Normal chest x-rays.
[2021-09-10 06:01] LABS: ALT 74 U/L (4-49); AST 58 U/L (17-59); African American GFR (CKD) >90 (>60 ml/min/1.73 sqM); Albumin 4.8 g/dL (3.5-5.0); Alkaline Phosphatase 57 U/L (38-126); Anion Gap 9 mmol/L; Blood Urea Nitrogen 16 mg/dL (9-20); Carbon Dioxide 23 mmol/L (22-30); Chloride 103 mmol/L (98-107); Glucose 156 mg/dL (74-99); Lipase 309 U/L (23-300); Non-African American GFR(CKD) >90 (>60 ml/min/1.73 sqM); Potassium 4.5 mmol/L (3.5-5.1); Sodium 135 mmol/L (137-145); Total Bilirubin 0.5 mg/dL (0.2-1.3); Total Protein 7.3 g/dL (6.3-8.2)
[2021-09-10 06:32] VITALS: BP 116/67; PULSE 73; TEMP 97.9
== END 2021-09-10 06:18 | disposition home or self-care (01) ==
LOC: EC 04:13
DX: R07.89 Other chest pain (principal); J44.9 Chronic obstructive pulmonary disease, unspecified; I10 Essential (primary) hypertension; Z87.891 Personal history of nicotine dependence
CPT/HCPCS: 36415; 71046; 80053; 83690; 83735; 83880; 84484; 85025; 85610; 85730; 93005; 99285

== ENCOUNTER 2021-10-20 15:49 | Emergency (ER) | payer OTHER ==
[2021-10-20 16:13] VITALS: PULSE 100; TEMP 98.6
[2021-10-20] MEDS ORDERED: IBUPROFEN 400 MG TAB PO STA (16:32)
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
--- NOTE | 2021-10-20 16:45 | XR ---
EXAMINATION TYPE: XR chest 2V DATE OF EXAM: 10/20/2021 COMPARISON: 09/10/2021 HISTORY: Cough TECHNIQUE: 2 views FINDINGS: Heart and mediastinum are normal. Lungs are clear. Diaphragm is normal. Bony thorax appears normal. IMPRESSION: Normal chest. No change.
[2021-10-20 17:11] LABS: Glucose,Whole Blood 180 mg/dL (70-110)
[2021-10-20 18:27] VITALS: BP 142/82; RESP 16
== END 2021-10-20 18:27 | disposition home or self-care (01) ==
LOC: EC 15:49
DX: U07.1 COVID-19 (principal); J44.9 Chronic obstructive pulmonary disease, unspecified; I10 Essential (primary) hypertension; Z87.891 Personal history of nicotine dependence; Z79.51 Long term (current) use of inhaled steroids
CPT/HCPCS: 36415; 71046; 87502; 87635; 99283

== ENCOUNTER → 2022-07-10 | Outpatient (CLI) | payer OTHER ==
--- NOTE | 2022-07-13 22:35 | NM ---
EXAMINATION TYPE: NM thyroid image w uptake DATE OF EXAM: 07/11/2022 COMPARISON: Neck CT October 25, 2020 and thyroid ultrasound April 30, 2021 CLINICAL INDICATION: Male, 61 years old with history of E01.0; TECHNIQUE: Thyroid iodine uptake is calculated and images performed after the oral administration of 291 uCi 1-123 Capsule. FINDINGS: There is normal distribution of activity throughout the heterogeneous enlarged left thyroid lobe extending into isthmus which correlates with most recent ultrasound and CT. The 4 hour iodine uptake is calculated at 6%, diminished from the normal range (normal range 8-14%). The 24-hour iodine uptake is calculated at 18% (normal range 15-35%). IMPRESSION: Normal scan in the enlarged remnant left thyroid lobe and normal 24-hour uptake.
== END | disposition home or self-care (01) ==
LOC: RADNMMAIN 09:44
PROVIDERS: ATTEND Family Medicine
DX: E01.0 Iodine-deficiency related diffuse (endemic) goiter (principal); J44.9 Chronic obstructive pulmonary disease, unspecified; G47.34 Idiopathic sleep related nonobstructive alveolar hypoventilation
CPT/HCPCS: 78014

== ENCOUNTER 2023-01-13 08:00 | Day surgery (SDC) | payer OTHER ==
[2023-01-12 09:51] VITALS: BMI 41.0
[2023-01-13] MEDS ORDERED: LIDOCAINE 1% (10MG/ML) FOR IV START INTRADERMA PRN (08:18)
[2023-01-13 09:13] VITALS: TEMP 987.5
[2023-01-13 09:25] LABS: Glucose,Whole Blood 149 mg/dL (70-110)
[2023-01-13] MEDS: LACTATED RINGERS 1,000 ML IV SCH ×2 (09:26→09:59)
[2023-01-13] MEDS ORDERED: ONDANSETRON 4 MG/2 ML VIAL ONE (09:34)
[2023-01-13] MEDS ORDERED: LIDOCAINE 1% INJ 10MG/ML (20 ML MDV) ONE (10:00)
[2023-01-13] MEDS ORDERED: PROPOFOL 10 MG/ML 20 ML VIAL IV ONE (10:00)
--- NOTE | 2023-01-13 10:27 | P.PCN ---
Date of Procedure: 01/13/23 Procedure(s) Performed: BRIEF HISTORY: Patient is a 62-year-old pleasant white male scheduled for an elective colonoscopy as a part of evaluation of prior history of colon polyps and family history of colon cancer. His father was diagnosed with colon cancer at age 60. PROCEDURE PERFORMED: Colonoscopy with snare polypectomy. PREOPERATIVE DIAGNOSIS: history of colon polyps and family history of colon cancer. IV sedation per Anesthesia. PROCEDURE: After informed consent was obtained, the patient, was brought into the endoscopy unit. IV sedation was administered by Anesthesia under continuous monitoring. Digital rectal examination was normal. Initially the Olympus CF-160 flexible video colonoscope was then inserted in the rectum, gradually advanced into the cecum without any difficulty. Careful examination was performed as the scope was gradually being withdrawn. Ileocecal valve and the appendiceal orifice were visualized and appeared normal. Prep was excellent. Mucosa of the cecum, ascending colon, transverse colon, descending colon, appeared normal. In the sigmoid there was a 5 mm polyp that was removed by cold snare polypectomy. Rest of the sigmoid colon, and rectum appeared normal. Retroflexion was performed in the rectum and no lesions were seen. The patient tolerated the procedure well. IMPRESSION: 5 mm sigmoid: Polyp status post cold snare polypectomy rest of the colon appeared normal RECOMMENDATIONS: Findings of this examination were discussed with the patient .as well as a family. He was advised to follow with the biopsy results. Recommend repeat colonoscopy in 5 years because of the family history of colon cancer
[2023-01-13 10:43] VITALS: PULSE 78
[2023-01-13 11:05] VITALS: BP 123/62; RESP 20
== END 2023-01-13 11:01 | disposition home or self-care (01) ==
LOC: ORWHC2ENDO 08:00
PROVIDERS: ATTEND Internal Medicine Gastroenterology
DX: Z12.11 Encounter for screening for malignant neoplasm of colon (principal); K63.5 Polyp of colon; I10 Essential (primary) hypertension; E78.5 Hyperlipidemia, unspecified; J45.909 Unspecified asthma, uncomplicated; J44.9 Chronic obstructive pulmonary disease, unspecified; G47.33 Obstructive sleep apnea (adult) (pediatric); E11.9 Type 2 diabetes mellitus without complications; Z79.811 Long term (current) use of aromatase inhibitors; Z80.0 Family history of malignant neoplasm of digestive organs; Z79.51 Long term (current) use of inhaled steroids; Z79.84 Long term (current) use of oral hypoglycemic drugs; Z79.899 Other long term (current) drug therapy
CPT/HCPCS: 88305; 45385; J2001; J2704

== ENCOUNTER 2023-01-25 04:38 | Emergency (ER) | payer OTHER ==
[2023-01-25 05:01] VITALS: BP 170/97; PULSE 89; RESP 18; TEMP 97.9
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
== END 2023-01-25 05:06 | disposition left against medical advice (07) ==
LOC: EC 04:38
DX: Z53.21 Procedure and treatment not carried out due to patient leaving prior to being seen by health care provider (principal); R11.2 Nausea with vomiting, unspecified; E11.9 Type 2 diabetes mellitus without complications; I10 Essential (primary) hypertension; J44.89 Other specified chronic obstructive pulmonary disease; K21.9 Gastro-esophageal reflux disease without esophagitis; F41.9 Anxiety disorder, unspecified; F31.9 Bipolar disorder, unspecified; Z87.891 Personal history of nicotine dependence; Z79.51 Long term (current) use of inhaled steroids; Z79.84 Long term (current) use of oral hypoglycemic drugs; Z79.899 Other long term (current) drug therapy; Z90.49 Acquired absence of other specified parts of digestive tract
CPT/HCPCS: 99499

== ENCOUNTER → 2023-01-28 | Outpatient (CLI) | payer OTHER ==
[2023-01-28 11:55] LABS: African American GFR (CKD) >90 (>60 ml/min/1.73 sqM); Blood Urea Nitrogen 16 mg/dL (9-20); Non-African American GFR(CKD) >90 (>60 ml/min/1.73 sqM)
--- NOTE | 2023-01-28 18:53 | CT ---
EXAMINATION TYPE: CT abdomen wo/w con CT DLP: 469.1 mGycm, Automated exposure control for dose reduction was used. DATE OF EXAM: 01/28/2023 4:57 PM COMPARISON: None CLINICAL INDICATION:Male, 62 years old with history of E65 LOCALIZED ADIPOSITY, R10.11 RIGHT UPPER QU ADRA; right sided abdominal pain TECHNIQUE: Axial CT of the ;CT abdomen wo/w con;Sagittal and coronal reformats were created on a [employer] workstation. Contrast used:100 mL of Isovue 300 without and with IV Contrast, (none if empty) Oral contrast used: with Oral Contrast (none if empty) FINDINGS: LOWER CHEST: Unremarkable ABDOMEN LIVER: Diffusely hypoattenuating parenchyma. Simple appearing hepatic probable cyst. GALLBLADDER AND BILE DUCTS: Unremarkable. PANCREAS: Unremarkable. SPLEEN: Unremarkable. ADRENAL GLANDS: Ossifications in the left adrenal gland. KIDNEYS AND URETERS: No evidence of hydronephrosis or renal calculus. The ureters are unremarkable. STOMACH AND BOWEL: No evidence of bowel obstruction. The appendix is normal. PERITONEUM/RETROPERITONEUM: No evidence of pneumoperitoneum or free fluid. VASCULATURE: No evidence of aortic aneurysm. MUSCULOSKELETAL: No acute osseous abnormalities LYMPH NODES: No gross evidence for lymphadenopathy. SOFT TISSUE/ABDOMINAL WALL: Fat-containing umbilical hernia. IMPRESSION: 1. No evidence for acute abdominal process. 2. Calcification of the left adrenal gland favored to be sequela prior injury. 3. Hepatic steatosis. 4. Fat-containing umbilical hernia. 5. No obstructive uropathy or renal calculus. 6. The appendix is normal.
== END | disposition home or self-care (01) ==
LOC: RADCTMAIN 11:17
PROVIDERS: ATTEND Family Medicine
DX: K76.0 Fatty (change of) liver, not elsewhere classified (principal); K42.9 Umbilical hernia without obstruction or gangrene; E65 Localized adiposity; N28.89 Other specified disorders of kidney and ureter; E27.8 Other specified disorders of adrenal gland; R19.00 Intra-abdominal and pelvic swelling, mass and lump, unspecified site
CPT/HCPCS: 82565; 84520; 74170; 36415; Q9967

== ENCOUNTER 2023-07-15 04:51 | Emergency (ER) | payer OTHER ==
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
[2023-07-15 05:40] VITALS: RESP 18
[2023-07-15 05:53] LABS: ALT 47 U/L (4-49); AST 29 U/L (17-59); African American GFR (CKD) >90 (>60 ml/min/1.73 sqM); Albumin 4.4 g/dL (3.5-5.0); Alkaline Phosphatase 53 U/L (38-126); Anion Gap 9 mmol/L; Blood Urea Nitrogen 17 mg/dL (9-20); Calcium 9.5 mg/dL (8.4-10.2); Carbon Dioxide 22 mmol/L (22-30); Chloride 107 mmol/L (98-107); Glucose 139 mg/dL (74-99); Magnesium 1.8 mg/dL (1.6-2.3); Non-African American GFR(CKD) >90 (>60 ml/min/1.73 sqM); Potassium 4.5 mmol/L (3.5-5.1); Sodium 138 mmol/L (137-145); Total Bilirubin 0.6 mg/dL (0.2-1.3); Total Protein 6.8 g/dL (6.3-8.2)
[2023-07-15 06:11] LABS: Basophils % (A) 1 %; Eosinophils # (A) 0.4 k/uL (0-0.7); Eosinophils % (A) 7 %; HCT 38.9 % (39.0-53.0); HGB 13.3 gm/dL (13.0-17.5); Lymphocytes # (A) 2.8 k/uL (1.0-4.8); Lymphocytes % (A) 45 %; MCH 30.5 pg (25.0-35.0); MCHC 34.1 g/dL (31.0-37.0); MCV 89.2 fL (80.0-100.0); Mean Platelet Volume 7.5; Monocytes # (A) 0.4 k/uL (0-1.0); Monocytes % (A) 6 %; Neutrophils # (A) 2.4 k/uL (1.3-7.7); Neutrophils % (A) 40 %; Platelet Count 240 k/uL (150-450); RBC 4.36 m/uL (4.30-5.90); RDW 13.4 % (11.5-15.5); WBC 6.2 k/uL (3.8-10.6)
[2023-07-15] MEDS: SODIUM CHLORIDE 0.9% 1,000 ML IV STA (06:13)
[2023-07-15 06:20] LABS: Partial Thromboplastin Time 25.1 sec (22.0-30.0); Prothrombin Time 11.2 sec (10.0-12.5)
[2023-07-15] MEDS: ALPRAZolam 1 MG TAB PO STA ×2 (06:20→06:53)
[2023-07-15 06:49] LABS: Appearance,Urine Clear (Clear); Bilirubin,Urine Negative (Negative); Blood,Urine Negative (Negative); Color,Urine Colorless; Glucose,Urine (UA) Negative (Negative); Ketones,Urine Negative (Negative); Leukocyte Esterase,Urine Negative (Negative); Nitrite,Urine Negative (Negative); Protein,Urine Negative (Negative); Specific Gravity,Urine 1.009 (1.001-1.035); Urobilinogen,Urine <2.0 mg/dL (<2.0)
--- NOTE | 2023-07-15 06:49 | XR ---
EXAMINATION TYPE: XR chest 2V DATE OF EXAM: 07/15/2023 COMPARISON: 04/28/2022 INDICATION: Dysrhythmia TECHNIQUE: Frontal and lateral views of the chest are obtained. FINDINGS: The heart size is normal. The pulmonary vasculature is normal. The lungs are clear. IMPRESSION: 1. No acute pulmonary process.
[2023-07-15 07:18] VITALS: BP 106/52; PULSE 74; TEMP 97.3
== END 2023-07-15 06:54 | disposition home or self-care (01) ==
LOC: EC 04:51
DX: R00.2 Palpitations (principal); F41.9 Anxiety disorder, unspecified; G47.30 Sleep apnea, unspecified; Z87.891 Personal history of nicotine dependence
CPT/HCPCS: 36415; 71046; 80053; 81003; 83735; 84443; 84484; 85025; 85610; 85730; 93005; 96360; 99285

== ENCOUNTER 2023-07-15 08:59 | Emergency (ER) | payer OTHER ==
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
[2023-07-15 09:50] VITALS: RESP 18
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
[2023-07-15 12:29] VITALS: BP 148/86; PULSE 79; TEMP 98.1
== END 2023-07-15 11:25 | disposition home or self-care (01) ==
LOC: EC 08:59
DX: S46.911A Strain of unspecified muscle, fascia and tendon at shoulder and upper arm level, right arm, initial encounter (principal); M25.461 Effusion, right knee; Z87.891 Personal history of nicotine dependence; V89.2XXA Person injured in unspecified motor-vehicle accident, traffic, initial encounter; Y92.410 Unspecified street and highway as the place of occurrence of the external cause
CPT/HCPCS: 99284; 93005; 73030; 73562; 71260; 74177; L1830; Q9967

== ENCOUNTER 2024-02-13 15:04 | Emergency (ER) | payer MEDICARE, OTHER ==
[2024-02-13 15:25] LABS: Glucose,Whole Blood 227 mg/dL (70-110)
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
[2024-02-13 15:50] LABS: Basophils # (A) 0.1 k/uL (0-0.2); Basophils % (A) 0 %; Eosinophils # (A) 0.3 k/uL (0-0.7); Eosinophils % (A) 2 %; HCT 41.4 % (39.0-53.0); HGB 14.6 gm/dL (13.0-17.5); Lymphocytes # (A) 1.1 k/uL (1.0-4.8); Lymphocytes % (A) 8 %; MCH 31.6 pg (25.0-35.0); MCHC 35.3 g/dL (31.0-37.0); MCV 89.4 fL (80.0-100.0); Monocytes # (A) 0.8 k/uL (0-1.0); Monocytes % (A) 6 %; Neutrophils # (A) 11.5 k/uL (1.3-7.7); Neutrophils % (A) 82 %; Platelet Count 306 k/uL (150-450); RBC 4.63 m/uL (4.30-5.90); RDW 13.1 % (11.5-15.5)
[2024-02-13] MEDS: ONDANSETRON 4 MG/2 ML VIAL IVP STA (16:09)
[2024-02-13] MEDS: SODIUM CHLORIDE 0.9% 1,000 ML IV STA (16:09)
[2024-02-13 16:16] LABS: ALT 92 U/L (4-49); AST 59 U/L (17-59); African American GFR (CKD) >90 (>60 ml/min/1.73 sqM); Alkaline Phosphatase 52 U/L (38-126); Amylase 72 U/L (30-110); Anion Gap 14 mmol/L; Blood Urea Nitrogen 20 mg/dL (9-20); Calcium 10.3 mg/dL (8.4-10.2); Carbon Dioxide 20 mmol/L (22-30); Chloride 102 mmol/L (98-107); Glucose 222 mg/dL (74-99); Lipase 227 U/L (23-300); Magnesium 1.5 mg/dL (1.6-2.3); Non-African American GFR(CKD) >90 (>60 ml/min/1.73 sqM); Potassium 4.4 mmol/L (3.5-5.1); Sodium 136 mmol/L (137-145); Total Bilirubin 0.8 mg/dL (0.2-1.3); Total Protein 7.7 g/dL (6.3-8.2)
[2024-02-13] MEDS: MAGNESIUM OXIDE 400 MG TAB PO STA (17:24)
[2024-02-13] MEDS: CLOTRIMAZOLE 1% CREAM 30 GM TUBE TOPICAL STA (17:24)
[2024-02-13 17:38] LABS: Appearance,Urine Clear (Clear); Bilirubin,Urine Negative (Negative); Blood,Urine Negative (Negative); Color,Urine Light Yellow; Glucose,Urine (UA) Negative (Negative); Ketones,Urine Negative (Negative); Leukocyte Esterase,Urine Negative (Negative); Nitrite,Urine Negative (Negative); Protein,Urine Trace (Negative); Specific Gravity,Urine 1.016 (1.001-1.035); Urobilinogen,Urine <2.0 mg/dL (<2.0)
--- NOTE | 2024-02-13 18:29 | CT ---
EXAMINATION TYPE: CT abdomen pelvis w con DATE OF EXAM: 02/13/2024 5:57 PM COMPARISON: 07/15/2023 CLINICAL INDICATION: Male, 63 years old with history of Right sided abdominal pain, nausea, vomiting, diarrhea, TECHNIQUE: Contiguous axial scanning of the abdomen and pelvis following administration of 100 ml Iso jessica 300 IV contrast. Delayed images through the kidneys and coronal/sagittal reconstructions perform ed. CT DLP: 2453.1 mGycm, Automated exposure control for dose reduction was used. FINDINGS: Heart normal size without pericardial effusion. Lung bases clear without pleural effusion. 1.7 cm hypodensity mid liver slightly larger from 07/15/2023 but with an appearance suggesting a cyst. An additional probable cyst measuring 1.3 cm lateral right liver lobe remains unchanged. Liver enlarged at 21.4 cm with suspected underlying fatty infiltration. Portal venous system is paten t. No biliary ductal dilatation. Gallbladder surgically absent. Unchanged mild thickening and calcification left adrenal gland. Right adrenal gland, kidneys, spleen, and pancreas show no gross abnormality. Prominent fluid-filled small bowel loops are present throughout, some of which are mildly dilated jose suring up to 3.7 cm. No transition point to suggest obstruction. No free air or free fluid. A few prominent mesenteric lymph nodes measuring up tor 9 mm remain unchanged. Normal appendix. Minimal scattered stool. No pericolonic inflammatory change. Bladder is urine distended. Prostate mildly enlarged at 4.7 cm there is some soft tissue impressing u rishabh to the bladder base suggesting BPH. Correlate with symptoms. There are ongoing moderate to large bilateral hydroceles. No pelvic lymphadenopathy. No other abnorma l fluid collection seen. Bones: Moderate degenerative disc disease throughout the visualized lower thoracic and lumbar spine. Hypertrophic facet arthropathy lumbar spine. Chronic mild anterior wedge deformity L1 and L2 and trac e grade 1 retrolisthesis L1-L2 and L2-L3 and L3-L4. Mild to moderate degenerative change both hips. IMPRESSION: 1. PROMINENT FLUID-FILLED SMALL BOWEL LOOPS THROUGHOUT, SOME MILDLY DILATED UP TO 3.7 CM. CORRELATE F OR A GENERALIZED ILEUS OR ENTERITIS. NO EVIDENCE FOR BOWEL OBSTRUCTION. 2. Ongoing moderate to large bilateral scrotal hydroceles. Clinically correlate. 3. Hepatomegaly at 21.4 cm. Suspect some underlying hepatic steatosis. [facility], , 02/13/2024 6:26 PM
[2024-02-13] MEDS: ONDANSETRON 4 MG ODT STARTER PACK 2 TAB BTL PO STA (19:08)
[2024-02-13 19:11] VITALS: BP 98/69; PULSE 89; RESP 18; TEMP 98.4
== END 2024-02-13 19:16 | disposition home or self-care (01) ==
LOC: EC 15:04
DX: K52.9 Noninfective gastroenteritis and colitis, unspecified (principal); E11.9 Type 2 diabetes mellitus without complications; R74.01 Elevation of levels of liver transaminase levels; R00.0 Tachycardia, unspecified; Z79.84 Long term (current) use of oral hypoglycemic drugs; Z87.891 Personal history of nicotine dependence
CPT/HCPCS: 36415; 93005; 80053; 82150; 83605; 83690; 83735; 85025; 81003; 74177; 99284; 96374; 96361; J2405; S0119; Q9967

== ENCOUNTER 2024-02-16 01:09 | Emergency (ER) | payer MEDICARE, OTHER ==
[2024-02-16 02:07] LABS: Basophils % (A) 1 %; Eosinophils # (A) 0.7 k/uL (0-0.7); Eosinophils % (A) 9 %; HCT 39.8 % (39.0-53.0); HGB 13.9 gm/dL (13.0-17.5); Lymphocytes # (A) 2.8 k/uL (1.0-4.8); Lymphocytes % (A) 37 %; MCH 31.4 pg (25.0-35.0); MCV 89.6 fL (80.0-100.0); Mean Platelet Volume 7.1; Monocytes # (A) 0.5 k/uL (0-1.0); Monocytes % (A) 7 %; Neutrophils # (A) 3.5 k/uL (1.3-7.7); Neutrophils % (A) 46 %; Platelet Count 283 k/uL (150-450); RBC 4.45 m/uL (4.30-5.90); RDW 13.2 % (11.5-15.5); WBC 7.7 k/uL (3.8-10.6)
[2024-02-16] MEDS: MAG HYDROX/AL HYDROX/SIMETH 30 ML, HYOSCYAMINE ELIXIR 10 ML, LIDOCAINE VISCOUS 2% 10 ML PO STA (02:25)
[2024-02-16 02:28] LABS: Partial Thromboplastin Time 24.9 sec (22.0-30.0); Prothrombin Time 10.6 sec (10.0-12.5)
[2024-02-16 02:40] LABS: ALT 66 U/L (4-49); AST 39 U/L (17-59); African American GFR (CKD) >90 (>60 ml/min/1.73 sqM); Alkaline Phosphatase 55 U/L (38-126); Anion Gap 10 mmol/L; Blood Urea Nitrogen 12 mg/dL (9-20); Calcium 9.9 mg/dL (8.4-10.2); Carbon Dioxide 24 mmol/L (22-30); Chloride 105 mmol/L (98-107); Glucose 161 mg/dL (74-99); Non-African American GFR(CKD) >90 (>60 ml/min/1.73 sqM); Potassium 4.1 mmol/L (3.5-5.1); Sodium 139 mmol/L (137-145); Total Bilirubin 0.5 mg/dL (0.2-1.3); Total Protein 7.6 g/dL (6.3-8.2)
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
[2024-02-16 04:04] VITALS: BP 130/78; PULSE 77; RESP 18; TEMP 97.6
--- NOTE | 2024-02-16 04:05 | XR ---
EXAM: XR Chest, 2 Views CLINICAL HISTORY: ITS.REASON XR Reason: Chest Pain TECHNIQUE: Frontal and lateral views of the chest. COMPARISON: No relevant prior studies available. FINDINGS: Lungs: No consolidation or mass. Pleural space: No effusion. Heart: No cardiomegaly. Bones/joints: No acute findings. IMPRESSION: No acute cardiopulmonary process.
== END 2024-02-16 04:06 | disposition home or self-care (01) ==
LOC: EC 01:09
DX: R07.89 Other chest pain (principal); F41.9 Anxiety disorder, unspecified; Z87.891 Personal history of nicotine dependence
CPT/HCPCS: 36415; 71046; 80053; 83735; 84484; 85025; 85379; 85610; 85730; 93005; 99285

== ENCOUNTER 2024-03-07 23:57 | Emergency (ER) | payer MEDICARE, OTHER ==
[2024-03-08 00:03] VITALS: BP 169/95; PULSE 84; RESP 20; TEMP 97.7
[2024-03-08] MEDS ORDERED: SODIUM CHLORIDE 0.9% 500 ML 500 ML IV STA (00:04)
[2024-03-08] MEDS ORDERED: IPRATROPIUM-ALBUTEROL 3 ML NEB INHALATION STA (00:04)
[2024-03-08] MEDS ORDERED: SODIUM CHLORIDE 0.9% 1,000 ML IV STA (00:04)
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
[2024-03-08] MEDS ORDERED: HYDROmorphone 0.5 MG/0.5 ML SYRINGE IVP STA (00:34)
== END 2024-03-08 00:54 | disposition left against medical advice (07) ==
LOC: EC 23:57
DX: F41.9 Anxiety disorder, unspecified (principal); Z53.29 Procedure and treatment not carried out because of patient's decision for other reasons; Z87.891 Personal history of nicotine dependence
CPT/HCPCS: 93005; 99285

== ENCOUNTER → 2024-05-06 | Outpatient (CLI) | payer MEDICARE, OTHER ==
--- NOTE | 2024-05-06 15:01 | CT ---
EXAMINATION TYPE: CT chest w con DATE OF EXAM: 05/06/2024 2:36 PM COMPARISON: Chest radiograph from same day. 07/15/2023 CLINICAL INDICATION: Male, 63 years old with history of R06.01 ORTHOPNEA; PHH, SOB and mass on throat . TECHNIQUE: Multiple axial images were obtained through the chest. Sagittal and coronal reformats were created for review. MIP was performed on a separate workstation. Contrast used:100ml mL of Isovue 300 with IV Contrast (None if empty) Oral contrast used: (None if empty) CT DLP: 653 mGycm, Automated exposure control for dose reduction was used. FINDINGS: LUNGS/ PLEURA: No focal consolidation, pneumothorax or pleural effusion. AIRWAY: Patent and unremarkable. HEART: Size within normal limits MEDIASTINUM: No gross evidence of adenopathy. VASCULATURE: No aortic aneurysm. MUSCULOSKELETAL: No acute osseous abnormalities SOFT TISSUES/LYMPH NODES: Enlarged multinodular goiter in the left. LOWER NECK: No significant findings. UPPER ABDOMEN: Opacifications in the left adrenal gland. Probable hepatic cyst. IMPRESSION: 1. Multinodular goiter of the left thyroid gland correlate with thyroid ultrasound if not recently p erformed. This likely accounts for mass in the throat. 2. Ossifications of the left adrenal gland possibly sequela prior injury. Follow up recommendations for incidental pulmonary nodules, if there are any, are per [employer] or [employer]. https://radiopaedia.org/articles/dznvbzfiid-byhkunk-bcdmfuowk-psiiia-xmtlsowqijlqlre-[email or web address]?lang=us [facility], , 05/06/2024 2:59 PM
== END | disposition home or self-care (01) ==
LOC: RADCTMAIN 14:05
PROVIDERS: ATTEND Family Medicine
DX: E04.2 Nontoxic multinodular goiter (principal); R06.01 Orthopnea
CPT/HCPCS: 71260; Q9967

== ENCOUNTER 2024-07-08 05:58 | Day surgery (SDC) | payer MEDICARE, OTHER ==
[2024-07-05 17:56] VITALS: BMI 39.5
[2024-07-08 06:48] VITALS: RESP 16; TEMP 98
[2024-07-08] MEDS: IV FLUID CONTINUATION 1,000 ML IV ONE (06:48)
[2024-07-08 06:50] LABS: Glucose,Whole Blood 175 mg/dL (70-110)
[2024-07-08] MEDS: SODIUM CHLORIDE 0.9% 500 ML 500 ML IV SCH (06:57)
[2024-07-08] MEDS: BENZOCAINE SPRAY 1 EACH MM ONE ×2 (07:45→07:56)
[2024-07-08] MEDS: MIDAZOLAM 2 MG/2 ML VIAL IVP ONE ×2 (07:58→08:04)
[2024-07-08] MEDS: fentaNYL (PF) 50 MCG/ML 2 ML AMP IVP ONE (07:58)
--- NOTE | 2024-07-08 08:14 | P.PCN ---
Date of Procedure: 07/08/24 Operative Findings: TRANSESOPHAGEAL ECHOCARDIOGRAM LEAD INVESTIGATOR: JOSE STEWART MD, RPVI INDICATION: Rule out atrial septal defect SEDATION: Conscious sedation COMPLICATION: None LEVEL OF SEDATION Moderate with sedation next of 18 PROCEDURE DESCRIPTION: After obtaining an informed consent, the patient was brought to transesophageal echocardiogram room. Pulse oximetry and heart monitors were attached to the patient. The patient throat was sprayed using lidocaine. The patient was turned into left lateral position. After that a bite guard was placed. After an appropriate conscious sedation was initiated, the transesophageal echocardiogram was advanced through a bite guard into the mid esophagus. A 2-D echocardiogram images, color Doppler images, continuous wave images, pulse-wave images, of various cardiac structure were performed. After that the transesophageal echocardiogram probe was advanced into the stomach and fixed to obtain transgastric view was. The probe was brought into the mid esophagus. Inter-atrial septum was interrogated using 2D images, color Doppler images, and then contrast study. After that transesophageal echocardiogram was withdrawn out and upon withdrawing the descending thoracic aorta all the way up to the arch was evaluated. CONCLUSION: 1. Hyperdynamic interatrial septum with no evidence of PFO or ASD 2. Chiari network was identified in the right atrium 3. Intact left atrial appendage 4. Normal biventricular systolic function 5. Normal intracardiac valves 6. No pericardial effusion
[2024-07-08 10:29] VITALS: PULSE 81
[2024-07-08 10:30] VITALS: BP 139/79
== END 2024-07-08 09:29 | disposition home or self-care (01) ==
LOC: CATHCVL 05:58
PROVIDERS: ATTEND Internal Medicine Interventional Cardiology
DX: Q24.8 Other specified congenital malformations of heart (principal); I47.19 Other supraventricular tachycardia; I47.29 Other ventricular tachycardia; I10 Essential (primary) hypertension; E78.5 Hyperlipidemia, unspecified; I77.810 Thoracic aortic ectasia; G47.33 Obstructive sleep apnea (adult) (pediatric); E89.0 Postprocedural hypothyroidism; I08.3 Combined rheumatic disorders of mitral, aortic and tricuspid valves; I65.23 Occlusion and stenosis of bilateral carotid arteries; Z79.82 Long term (current) use of aspirin; Z79.51 Long term (current) use of inhaled steroids; Z79.85 Long-term (current) use of injectable non-insulin antidiabetic drugs; Z79.84 Long term (current) use of oral hypoglycemic drugs; Z79.899 Other long term (current) drug therapy; Z82.49 Family history of ischemic heart disease and other diseases of the circulatory system
CPT/HCPCS: 93312; 93320; 93325; J2250; J3010